=== PATIENT | male | born 1955 | race Caucasian/White ===

== ENCOUNTER 2022-01-31 17:52 | Observation (INO) | payer MEDICARE, OTHER, SELFPAY ==
--- OUTSIDE RECORDS SUMMARY | 2022-01-31 17:54 | XMS REPORT | Continuity of Care Document ---
:1955 Author Organization [facility] Address [address] [place] [address] [address] [place] [address] Care Team Providers Name Role Phone GAYLORD_S Attending Clinician Unavailable OWENS_T Attending Clinician Unavailable GAYLORD_S Admitting Clinician Unavailable OWENS_T Admitting Clinician Unavailable Payers Payer Name Policy Type Policy Number Effective Date Expiration Date Deonna jones [facility] [id number] 2020 (MEDICARE 00:00:00 REPLACEMENT HMO) Problems This patient has no known problems. Allergies, Adverse Reactions, Alerts This patient has no known allergies or adverse reactions. Medications This patient has no known medications. Procedures This patient has no known procedures. Encounters Start End Encounter Admission Attending Care Care Encounter Source Date/Time Date/Time Type Type Clinicians Facility Department ID 2021-12-10 2021-12-10 Outpatient GAYLORD_S [facility] [id number] -2021 [facility] 12:01:00 12:01:00 0422 [facility] 2021-09-28 2021-09-28 Outpatient GAYLORD_S [facility]G [id number] -2021 [facility] 08:00:00 08:00:00 0208 [facility] 2021-09-23 2021-09-23 Outpatient GAYLORD_S [facility] DMG [id number] -2021 [facility] 07:33:00 07:33:00 0203 [facility] 2020-12-16 2020-12-16 Outpatient OWENS_T DMG DMG [id number] [facility] 04:25:00 04:25:00 0428 [facility] 2020-11-21 2020-11-21 Outpatient DMG DMG [id number] [facility] 06:02:00 06:02:00 0403 [facility] Results This patient has no known results.
--- NOTE | 2022-01-31 20:11 | RAD REPORT ---
EXAM DESCRIPTION: RAD - Chest Pa And Lat (2 Views) - 01/31/2022 7:48 pm CLINICAL HISTORY: Cough Chest pain. COMPARISON: No comparisons FINDINGS: The lungs are clear. The heart is normal in size. No displaced fractures. IMPRESSION: No acute or concerning finding suspected.
--- NOTE | 2022-01-31 22:04 | ER ---
Nurse's Notes [facility] Name: Davis Kramer Age: 66 yrs Sex: Male : 1955 Arrival Date: 01/31/2022 Time: 17:54 Bed 27 Private MD: Diagnosis: Chest pain, unspecified;Dyspnea;Essential (primary) hypertension;Hypokalemia Presentation: 01/31 18:38 Chief complaint: Patient states: difficulty breathing x 2 days with cough and chest vg1 tightness; diarrhea yesterday and states nausea. Coronavirus screen: Vaccine status: Patient reports receiving the 1st dose of the Covid vaccine. Client denies travel out of the [place] in the last 14 days. Ebola Screen: Patient denies exposure to infectious person. Patient denies travel to an Ebola-affected area in the 21 days before illness onset. Initial Sepsis Screen: Does the patient meet any 2 criteria? RR > 20 per min. Does the patient have a suspected source of infection? No. Patient's initial sepsis screen is negative. Risk Assessment: Do you want to hurt yourself or someone else? Patient reports no desire to harm self or others. Onset of symptoms was January 29, 2022. 18:38 Method Of Arrival: Ambulatory vg1 18:38 Acuity: CHAPIS 3 vg1 Triage Assessment: 18:38 General: Appears uncomfortable, Behavior is calm, cooperative. Pain: Complains of pain vg1 in chest Pain. Pain: Pain currently is 8 out of 10 on a pain scale. Cardiovascular: Patient's skin is warm and dry. Respiratory: Airway is patent Respiratory effort is even, labored, Respiratory pattern is tachypnea. Historical: - Allergies: 18:42 Demerol; vg1 - Home Meds: 18:42 Depakote Oral [Active]; vg1 - PMHx: 18:42 PTSD; Hypertensive disorder; Seizure; vg1 - Immunization history:: Client reports receiving the 1st dose of the Covid vaccine. - Social history:: Smoking status: Patient denies any tobacco usage or history of. - Family history:: not pertinent. Screenin/14 01:59 Abuse screen: Denies threats or abuse. Nutritional screening: No deficits noted. ke1 Tuberculosis screening: No symptoms or risk factors identified. Fall Risk None identified. Assessment: 01/31 18:58 Reassessment: pt dozed off in triage; Nicole VALDEZ was brought into room to evaluate pt; pt vg1 became aggressive when woken up; pt is now calm. 20:09 Reassessment: Pt placed in room on stretcher, states swabbed in triage. vc1 20:09 Reassessment: See triage assessment. vc1 21:00 Reassessment: Patient asleep on stretcher. vc1 22:00 Reassessment: No changes from previously documented assessment. vc1 23:00 Reassessment: No changes from previously documented assessment. vc1 23:00 Reassessment: Pt moved via wheelchair to POD 1 as ER hold. vc1 23:00 Pain: Denies pain. vc1 Vital Signs: 18:38 BP 157 / 103; Pulse 68; Resp 24; Temp 97.9(O); Pulse Ox 97% on R/A; Weight 95.25 kg; vg1 Height 6 ft. 1 in. (185.42 cm); Pain 8/10; 18:38 Body Mass Index 27.70 (95.25 kg, 185.42 cm) 1 ED Course: 17:54 Patient arrived in ED. jj6 18:38 Arm band placed on. EKG completed in triage. Results shown to MD. 1 18:42 Triage completed. vg1 18:47 Bismark Rivera PA is PHCP. cp 18:47 Edwin Tellez MD is Attending Physician. cp 19:04 EKG done, COVID swab sent to lab. Flu and/or RSV swab sent to lab. Strep swab sent to 1 lab. 19:49 Chest Pa And Lat (2 Views) XRAY In Process Unspecified. EDMS 20:20 Strep Sent. vc1 20:20 Flu Sent. vc1 20:20 SARS-COV-2 RT PCR (Document "Date of Onset" if Symptomatic) Sent. vc1 20:53 Bismark Arredondo MD is Attending Physician. [facility] 22:00 No provider procedures requiring assistance completed. vc1 22:00 Patient maintains SpO2 saturation greater than 95% on room air. vc1 22:02 Anton Bartlett is Hospitalizing Provider. [facility] 02/01 00:55 Noe Maria RN is Primary Nurse. ke1 01:55 Inserted saline lock: 22 gauge in right antecubital area, using aseptic technique. wm Blood collected. 01:56 Troponin HS Sent. 01:56 PT-INR Sent. 01:56 NT PRO-BNP Sent. 01:56 Magnesium Sent. 01:56 LFT's Sent. 01:56 CBC with Diff Sent. 01:56 Basic Metabolic Panel Sent. 02:00 Bed in low position. Call light in reach. Side rails up X 1. Side rails up X2. [facility] 02:14 Lights dimmed. Warm blanket given. Head of bed Elevated. Client placed on continuous cardiac and pulse oximetry monitoring. NIBP monitoring applied. electronic device monitor on. Administered Medications: : Drug: Lopressor (metoprolol TARTRATE)) 25 mg Route: PO; ke1 02:09 Follow up: Response: No adverse reaction ke08 21:29 Drug: Lovenox (enoxaparin) 1 mg/kg Route: Sub-Q; Site: right lower abdomen; ke1 02:09 Follow up: Response: No adverse reaction [facility] Outcome: 01/31 22:03 Decision to Hospitalize by Provider. [facility] 02/01 17:43 Patient left the ED. ss Signatures: Dispatcher [employer] EDMS Bismark Arredondo MD MD cha Smirch, Shelby, RN RN ss Bismark Rivera PA PA cp Garcia, Victoria, RN RN vg1 Alissa Borja Jennifer jj6 Jazmine Daigle, RN RN vc1 Noe Maria, IRIS RN ke1 Corrections: (The following items were deleted from the chart) 01/31 18:44 18:38 Pulse 68bpm; Resp 24bpm; Pulse Ox 97% RA; Temp 97.9F Oral; 95.25 kg; Height 6 ft. vg1 1 in.; BMI: 27.7; Pain 8/10; vg1 18:44 18:42 Allergies: No Known Allergies; vg1 vg1
--- NOTE | 2022-01-31 22:04 | EDPHYS ---
Physician Documentation [facility] Name: Davis Kramer Age: 66 yrs Sex: Male : 1955 Arrival Date: 01/31/2022 Time: 17:54 Bed 27 Private MD: ED Physician Bismark Arredondo HPI: 01/31 21:54 This 66 yrs old Male presents to ER via Ambulatory with complaints of Chest dwayne Congestion, Chest Pressure, Breathing Difficulty. 21:54 The patient or guardian reports chest pain that is located primarily in the substernal dwayne area. Onset: 2 day(s) ago. The pain does not radiate. Associated signs and symptoms: Pertinent positives: abdominal pain. The chest pain is described as a pressure. Duration: The patient or guardian reports multiple episodes, the episodes last approximately 15 second(s). Modifying factors: The symptoms are alleviated by application of supplemental oxygen, remaining still, rest, the symptoms are aggravated by exertion. Severity of pain: At its worst the pain was mild in the emergency department the pain is unchanged. The patient has experienced similar episodes in the past, several times. Historical: - Allergies: 18:42 Demerol; vg1 - Home Meds: 18:42 Depakote Oral [Active]; vg1 - PMHx: 18:42 PTSD; Hypertensive disorder; Seizure; vg1 - Immunization history:: Client reports receiving the 1st dose of the Covid vaccine. - Social history:: Smoking status: Patient denies any tobacco usage or history of. - Family history:: not pertinent. ROS: 21:54 Constitutional: Negative for fever, chills, and weight loss, Eyes: Negative for injury, dwayne pain, redness, and discharge, ENT: Negative for injury, pain, and discharge, Neck: Negative for injury, pain, and swelling, Abdomen/GI: Negative for abdominal pain, nausea, vomiting, diarrhea, and constipation, Back: Negative for injury and pain, : Negative for injury, bleeding, discharge, and swelling, MS/Extremity: Negative for injury and deformity, Skin: Negative for injury, rash, and discoloration, Neuro: Negative for headache, weakness, numbness, tingling, and seizure, Psych: Negative for depression, anxiety, suicide ideation, homicidal ideation, and hallucinations, Allergy/Immunology: Negative for hives, rash, and allergies, Endocrine: Negative for neck swelling, polydipsia, polyuria, polyphagia, and marked weight changes, Hematologic/Lymphatic: Negative for swollen nodes, abnormal bleeding, and unusual bruising. 21:54 Cardiovascular: Positive for chest pain, of the chest. 21:54 Respiratory: Positive for shortness of breath, on exertion. Exam: 18:55 ECG was reviewed by the Attending Physician. cp 21:54 Constitutional: This is a well developed, well nourished patient who is awake, alert, dwayne and in no acute distress. Head/Face: Normocephalic, atraumatic. Eyes: Pupils equal round and reactive to light, extra-ocular motions intact. Lids and lashes normal. Conjunctiva and sclera are non-icteric and not injected. Cornea within normal limits. Periorbital areas with no swelling, redness, or edema. ENT: Nares patent. No nasal discharge, no septal abnormalities noted. Tympanic membranes are normal and external auditory canals are clear. Oropharynx with no redness, swelling, or masses, exudates, or evidence of obstruction, uvula midline. Mucous membranes moist. Neck: Trachea midline, no thyromegaly or masses palpated, and no cervical lymphadenopathy. Supple, full range of motion without nuchal rigidity, or vertebral point tenderness. No Meningismus. Chest/axilla: Normal chest wall appearance and motion. Nontender with no deformity. No lesions are appreciated. Cardiovascular: Regular rate and rhythm with a normal S1 and S2. No gallops, murmurs, or rubs. Normal PMI, no JVD. No pulse deficits. Respiratory: Lungs have equal breath sounds bilaterally, clear to auscultation and percussion. No rales, rhonchi or wheezes noted. No increased work of breathing, no retractions or nasal flaring. Abdomen/GI: Soft, non-tender, with normal bowel sounds. No distension or tympany. No guarding or rebound. No evidence of tenderness throughout. Back: No spinal tenderness. No costovertebral tenderness. Full range of motion. Male : Normal genitalia with no discharge or lesions. Skin: Warm, dry with normal turgor. Normal color with no rashes, no lesions, and no evidence of cellulitis. MS/ Extremity: Pulses equal, no cyanosis. Neurovascular intact. Full, normal range of motion. Neuro: Awake and alert, GCS 15, oriented to person, place, time, and situation. Cranial nerves II-XII grossly intact. Motor strength 5/5 in all extremities. Sensory grossly intact. Cerebellar exam normal. Normal gait. Psych: Awake, alert, with orientation to person, place and time. Behavior, mood, and affect are within normal limits. 02/01 02:09 ECG was reviewed by the Attending Physician. [facility] Vital Signs: 01/31 18:38 BP 157 / 103; Pulse 68; Resp 24; Temp 97.9(O); Pulse Ox 97% on R/A; Weight 95.25 kg; vg1 Height 6 ft. 1 in. (185.42 cm); Pain 8/10; 18:38 Body Mass Index 27.70 (95.25 kg, 185.42 cm) vg1 MDM: 20:53 Patient medically screened. dwayne 21:58 Differential diagnosis: abnormal EKG, coronary artery disease chest wall pain, dwayne Cholelithiasis pancreatitis, pneumonia, stable angina, unstable angina. HEART Score: History: Slightly Suspicious (0), ECG: Normal (0), Age: > or = 65 years (2), Risk Factors: 1 or 2 risk factors (1), [Hypertension] [+ Family HX] Troponin: < or = 1 x Normal Limit (0). The patient was given aspirin in the Emergency Department. The patient's deep vein thrombosis risk score was calculated as follows: Total Score: 0. This patient was found to be at low risk for a deep vein thrombosis by using the Well's assessment criteria. The patient's pulmonary embolism risk score was calculated as follows: Total Score: 0-2 points. This patient was found to be at low risk for a pulmonary embolism by using the Well's assessment criteria. URVASHI Risk Score: 1 - patient's age is greater or equal to 65 years, TOTAL SCORE = 1. Data reviewed: vital signs, nurses notes, lab test result(s), EKG, radiologic studies, plain films. Data interpreted: channel business manager: rate is 68 beats/min, rhythm is regular, Pulse oximetry: on room air is 68 %. Test interpretation: by ED physician or midlevel provider: ECG, plain radiologic studies. Counseling: I had a detailed discussion with the patient and/or guardian regarding: the historical points, exam findings, and any diagnostic results supporting the discharge/admit diagnosis, lab results, radiology results, the need for further work-up and treatment in the hospital. 01/31 18:57 Order name: SARS-COV-2 RT PCR (Document "Date of Onset" if Symptomatic); Complete Time: [facility] 21:42 01/31 18:57 Order name: Flu; Complete Time: 21:08 [facility] 01/31 18:57 Order name: Strep; Complete Time: 21:08 [facility] 01/31 21:03 Order name: Throat Culture [facility] 01/31 21:49 Order name: Basic Metabolic Panel [facility] 01/31 21:49 Order name: CBC with Diff; Complete Time: 02:26 [facility] 01/31 21:49 Order name: LFT's [facility] 01/31 21:49 Order name: Magnesium [facility] 01/31 21:49 Order name: NT PRO-BNP [facility] 01/31 21:49 Order name: PT-INR; Complete Time: 02:36 [facility] 01/31 21:49 Order name: Troponin HS [facility] 01/31 21:49 Order name: Lipase [facility] 01/31 22:06 Order name: Depakote [facility] 02/01 06:42 Order name: Glucose, Ancillary Testing [facility] 01/31 19:03 Order name: Chest Pa And Lat (2 Views) XRAY; Complete Time: 21:08 [facility] 01/31 21:49 Order name: EKG; Complete Time: 22:20 [facility] 01/31 21:49 Order name: Cardiac monitoring; Complete Time: 01:59 [facility] 01/31 21:49 Order name: EKG - Nurse/Tech; Complete Time: 01:59 [facility] 01/31 21:49 Order name: IV Saline Lock; Complete Time: 01:56 [facility] 02/01 08:47 Order name: Troponin High Sensitivity [facility] 02/01 08:47 Order name: Lipid Profile [facility] 02/01 08:47 Order name: Thyroid Stimulating Hormone [facility] 02/01 11:47 Order name: Glucose, Ancillary Testing [facility] 02/01 14:41 Order name: Potassium [facility] 02/01 14:41 Order name: Troponin High Sensitivity [facility] 02/01 16:44 Order name: Glucose, Ancillary Testing [facility] 01/31 21:49 Order name: Labs collected and sent; Complete Time: 01:56 [facility] 01/31 21:49 Order name: O2 Per Protocol; Complete Time: 01:59 [facility] 01/31 21:49 Order name: O2 Sat Monitoring; Complete Time: :59 dwayne EC:55 Rate is 72 beats/min. Rhythm is regular. AR interval is normal. QRS interval is normal. cp QT interval is normal. T waves are Inverted in lead aVR. Interpreted by me. Reviewed by me. 02/01 02:09 Rate is 64 beats/min. Rhythm is regular. QRS Petroleum is Normal. AR interval is normal. QRS dwayne interval is normal. QT interval is normal. No Q waves. T waves are Normal. No ST changes noted. Clinical impression: NSR w/ Non-specific ST/T Changes and No evidence of ischemia. Interpreted by me. Reviewed by me. Administered Medications: :29 Drug: Lopressor (metoprolol TARTRATE)) 25 mg Route: PO; ke1 02:09 Follow up: Response: No adverse reaction ke1 01:29 Drug: Lovenox (enoxaparin) 1 mg/kg Route: Sub-Q; Site: right lower abdomen; ke1 02:09 Follow up: Response: No adverse reaction ke1 Disposition Summary: 01/31/22 22:03 Hospitalization Ordered Hospitalization Status: Observation dwayne Provider: Anton Bartlett cha Condition: Stable dwayne Problem: new dwayne Symptoms: have improved dwayne Bed/Room Type: Standard [facility] Location: [facility] ER HOLD(02/01/22 17:42) Room Assignment: ERHOLD-(02/01/22 17:42) Diagnosis - Chest pain, unspecified dwayne - Dyspnea dwayne - Essential (primary) hypertension dwayne - Hypokalemia dwayne Forms: - Medication Reconciliation Form dwayne - SBAR form dwayne Addendum: 02/04/2022 08:30 Co-signature as Attending Physician, Bismark Arredondo MD I agree with the assessment and c soto plan of care. Signatures: Dispatcher [employer] EDMS Tory Chatterjee Corey, MD MD cha Smirch, Shelby RN IRIS Bismark Rivera PA PA cp Garcia, Cindy, RN RN cg Garcia, Victoria, RN RN vg1 Noe Maria RN RN ke1 Deana Butler PA PA sb3 Corrections: (The following items were deleted from the chart) 01/31 18:44 18:42 Allergies: No Known Allergies; vg1 vg1 22:56 22:20 Chest Single View+RAD.RAD.BRZ ordered. EDMS EDMS 23:38 22:03 Telemetry/MedSurg (observation) [facility] :38 22:03 [facility] 02/01 16:04 01/31 23:38 [facility] ER HOLD cg 02/01 16:04 01/31 23:38 ERHOLD- cg 02/01 17:42 16:04 Telemetry/MedSurg (observation) bd 17:42 16:[address] [place] [address]
[2022-02-01] MEDS ORDERED: ENOXAPARIN 100 MG/ML SYR SQ ONE (01:08)
[2022-02-01] MEDS ORDERED: METOPROLOL TAR 25 MG TAB ONE (01:08)
[2022-02-01 02:16] LABS: Absolute Lymphocytes (CBC) 1.9 K/uL (0.7-4.9); Hematocrit 47.2 % (39.6-49.0); Lymphocytes % 33.7 % (15.3-44.8); MPV 7.6 fL (7.6-11.3)
[2022-02-01 02:29] LABS: Protime INR 1.04
--- NOTE | 2022-02-01 02:45 | P.HP ---
Certification for Inpatient Patient admitted to: Observation With expected LOS: <2 Midnights Patient will require the following post-hospital care: None Practitioner: I am a practitioner with admitting privileges, knowledge of patient current condition, hospital course, and medical plan of care. Services: Services provided to patient in accordance with Admission requirements found in Title 42 Section 412.3 of the Code of Federal Regulations Patient History Date of Service: 02/01/22 Reason for admission: Chest Pain History of Present Illness: Patient is a 66 y/o male with PMH of HTN, NIDDM, and seizure disorder who presented to the ED with complaints of chest pressure, SHOB on exertion, nausea, diarrhea, and congestion for 2 days. CXR negative for acute process. Flu/COVID/Strep negative. EKG demonstrated NSR without ST changes. CBC WNL. Pending CMP and troponin as CMP machine has not been working. VSS. He was given lovenox and metoprolol in the ED. Provider wishes to admit patient for observation. Allergies meperidine [From Demerol] Allergy (Mild, Verified 02/01/22 04:22) Nausea/Vomiting Home medications list reviewed: Yes - Past Medical/Surgical History Diabetic: Yes -: Type 2 Diabetes, Non-Insulin Dependent -: Hypertension -: Seizure Disorder -: PTSD Past Surgical History: Patient denies surgical history Psychosocial/ Personal History: Patient is a . He lives at home. - Social History Smoking Status: Never smoker Alcohol use: Yes CD- Drugs: No Caffeine use: Yes Place of Residence: Home Review of Systems Respiratory: Cough, SOB with Excertion Cardiovascular: Chest Pain Gastrointestinal: Nausea, Diarrhea Physical Examination - Physical Exam General: Alert, In no apparent distress HEENT: Atraumatic, PERRLA, EOMI, Sclerae nonicteric Neck: Supple, 2+ carotid pulse no bruit, No LAD, Without JVD or thyroid abnormality Respiratory: Clear to auscultation bilaterally, Normal air movement Cardiovascular: Regular rate/rhythm, Normal S1 S2 Gastrointestinal: Normal bowel sounds, No tenderness Musculoskeletal: No tenderness Integumentary: No rashes Neurological: Normal speech, Normal strength at 5/5 x4 extr, Normal tone, Normal affect - Studies Laboratory Data (last 24 hrs) 02/01/22 01:48: PT 11.5, INR 1.04 02/01/22 01:48: WBC 5.6, Hgb 16.0, Hct 47.2, Plt Count 247 Microbiology Data (last 24 hrs): 01/31/22 19:25 Throat Group A Streptococcus Rapid Screen - Final 01/31/22 18:57 Nasopharnyx Influenza Type A Antigen Screen - Final 01/31/22 18:57 Nasopharnyx Influenza Type B Antigen Screen - Final Assessment and Plan - Problems (Diagnosis) (1) Chest pain Current Visit: Yes Status: Acute Qualifiers: Chest pain type: unspecified Qualified Code(s): R07.9 - Chest pain, unspecified (2) Hypertension Current Visit: Yes Status: Chronic Qualifiers: Hypertension type: primary hypertension Qualified Code(s): I10 - Essential (primary) hypertension (3) Type 2 diabetes mellitus Current Visit: Yes Status: Chronic Qualifiers: Diabetes mellitus terminologist insulin use: without correction use Diabetes mellitus complication status: without complication Qualified Code(s): E11.9 - Type 2 diabetes mellitus without complications - Plan -Pend and trend troponin -Echo and cardiology consult -Aspirin and atorvastatin daily -TSH and lipid panel ordered -Monitor on telemetry -Reconcile and continue home medications -Lovenox for VTE ppx -Full code Discharge Plan: Home Plan to discharge in: 24 Hours - Advance Directives Does patient have a Living Will: No Does patient have a Durable POA for Healthcare: No - Code Status/Comfort Care Code Status Assessed: Yes (Full) Critical Care: No Time Spent Managing Pts Care (In Minutes): 50
[2022-02-01] MEDS ORDERED: ONDANSETRON 4 MG/2 ML VIAL IV PRN (04:22)
[2022-02-01] MEDS ORDERED: ACETAMINOPHEN 500 MG TAB PO PRN (04:22)
[2022-02-01 04:24] LABS: Albumin 4.1 g/dL (3.4-5.0); Bilirubin Direct 0.1 mg/dL (0-0.2); Bilirubin Total 0.3 mg/dL (0.2-1.0); Magnesium 2.2 mg/dL (1.8-2.4); Potassium 3.1 mmol/L (3.5-5.1); Protein, Total 8.6 g/dL (6.4-8.2); Troponin High Sensitivity 7.2 pg/mL (<58.9)
[2022-02-01 04:39] LABS: Valproic Acid (Depakene) Level 77.3 ug/mL (50-100)
[2022-02-01 05:33] VITALS: BMI 26.9
[2022-02-01] MEDS: INSULIN -REGULAR HUMAN 50 UNIT/0.5 ML ML SQ SCH ×3 (07:30→16:30)
[2022-02-01 08:47] LABS: Thyroid Stimulating Hormone 2.39 uIU/mL (0.360-3.740); Troponin High Sensitivity 8.7 pg/mL (<58.9)
[2022-02-01] MEDS: POTASSIUM 25 MEQ EFFERV TAB PO ONE ×2 (08:57→09:25)
[2022-02-01] MEDS ORDERED: ASPIRIN EC 81 MG TAB PO ONE ×2 (08:59→09:27)
[2022-02-01] MEDS ORDERED: ASPIRIN 81 MG CHEWABLE TABLET ONE (08:59)
[2022-02-01] MEDS ORDERED: ENOXAPARIN 40 MG/0.4 ML SQ SCH (09:00)
[2022-02-01] MEDS ORDERED: POTASSIUM 25 MEQ EFFERV TAB ONE ×2 (09:00→09:27)
[2022-02-01] MEDS ORDERED: ASPIRIN EC 81 MG TAB PO SCH (09:00)
[2022-02-01] MEDS ORDERED: ENOXAPARIN 40 MG/0.4 ML SQ ONE ×2 (09:00→09:28)
[2022-02-01 10:17] VITALS: O2SAT 97
--- NOTE | 2022-02-01 11:06 | EKG ---
Test Date: 2022-02-01 Test Time: 02:00:04 Speech Therapy Teacher: MEASUREMENT RESULTS: Intervals: Rate: 64 SC: 186 QRSD: 94 QT: 424 QTc: 437 [place]: P: 39 SC: 186 QRS: 18 T: 9 INTERPRETIVE STATEMENTS: Normal sinus rhythm Normal ECG Compared to ECG 01/31/2022 18:44:44 No significant changes Electronically Signed On 02-01-22 11:04:51 CDT by Rony Bill
--- NOTE | 2022-02-01 11:07 | EKG ---
Test Date: 2022-01-31 Test Time: 18:44:44 Weight Engineer: LEN MEASUREMENT RESULTS: Intervals: Rate: 72 [place]: 172 QRSD: 82 QT: 396 QTc: 433 [place]: P: 36 [place]: 172 QRS: 16 T: 22 INTERPRETIVE STATEMENTS: Normal sinus rhythm Normal ECG No previous ECG available for comparison Electronically Signed On 02-01-22 11:04:57 CDT by Rony Bill
--- NOTE | 2022-02-01 13:29 | CON ---
Date of Consultation: 02/01/2022 Reason For Consultation: Chest pain. History Of Present Illness: Mr. Kramer is a 66-year-old without any past medical history except for h ypertension, seizure, and posttraumatic stress disorder. He came in with cough, congestion, stuffy n ose, productive cough of green and yellow sputum, chest pressure especially with cough. No nausea, v omiting, diaphoresis, PND, orthopnea, pedal edema, palpitations, or syncope. Has already ruled out f or CO. His potassium is 3.1. Glucose is 162. EKG is normal. Chest x-ray is unremarkable. Past Medical History: As stated above. Allergies: HE IS ALLERGIC TO DEMEROL. Review of Systems: Negative. Social History: Negative. Family History: Noncontributory. Medications: At home include Depakote. Physical Examination: Vital Signs: Stable, afebrile, sinus rhythm. HEENT: Negative. Neck: Supple without any bruit, lymphadenopathy, JVD, or thyromegaly. Chest: Revealed some expiratory wheezing. Cardiac: Revealed a regular rhythm and rate with S4 gallops. No murmurs or rubs. Abdomen: Benign. Extremities: Revealed no clubbing, cyanosis, or edema. Diagnostic Data: Listed earlier. Impression And Plan: Atypical chest pain. I think it is related to pulmonary issue with possible br onchitis. We should rule out congestive heart failure. Echocardiogram is pending. He is on Lovenox , Lipitor, aspirin, and insulin. Potassium needs to be corrected. His glucose needs to be addressed . His hypertension is well controlled. Seizure is well controlled on Depakote. I think if the echo cardiogram is normal, he can go home on antibiotics and I will set him up for an outpatient stress te st and see him in the near future. ADITHYA/LASHANDA Voice ID: [id number] Report ID: [id number]
[2022-02-01 14:41] LABS: Potassium 4.3 mmol/L (3.5-5.1); Troponin High Sensitivity 7.2 pg/mL (<58.9)
[2022-02-01 16:47] VITALS: BP 164/97; TEMP 98.1
--- NOTE | 2022-02-01 17:39 | P.DS ---
Admission Date: 02/01/22 Discharge Date: 02/01/22 Disposition: ROUTINE DISCHARGE Discharge Condition: FAIR Reason for Admission: Chest Pain - Problems (1) Cough Current Visit: Yes Status: Acute (2) Acute bronchitis Current Visit: Yes Status: Acute (3) Chest pain Current Visit: Yes Status: Acute Qualifiers: Chest pain type: unspecified Qualified Code(s): R07.9 - Chest pain, unspecified (4) Hypertension Current Visit: Yes Status: Chronic Qualifiers: Hypertension type: primary hypertension Qualified Code(s): I10 - Essential (primary) hypertension (5) Type 2 diabetes mellitus Current Visit: Yes Status: Chronic Qualifiers: Diabetes mellitus senior living insulin use: without senior living use Diabetes mellitus complication status: without complication Qualified Code(s): E11.9 - Type 2 diabetes mellitus without complications Brief History of Present Illness: Patient is a 66 y/o male with PMH of HTN, NIDDM, and seizure disorder who presented to the ED with complaints of chest pressure, SHOB on exertion, nausea, diarrhea, and congestion for 2 days. CXR negative for acute process. Flu/COVID/Strep negative. Patient reported cough productive of yellow sputum. He also felt he has a sputum stuck in his airways and not able to cough it up. EKG demonstrated NSR without ST changes. CBC WNL, initial troponin. He was given lovenox and metoprolol in the ED and hospitalized for further evaluation. Hospital Course: Patient placed under observation on the medical floor. Troponin trended x3 and was negative. Patient was chest pain-free. He was complaining of not able to cough up sputum from his airway but occasionally brings up scanty yellow-colored sputum. ACS rule out. Vitals are stable. Patient is deemed stable for discharge. Dr. Bill about patient. He will follow with Dr. Bill in the office for arrangement for stress test. Vital Signs/Physical Exam: Temp Pulse Resp BP Pulse Ox 98.1 F 62 14 164/97 H 98 02/01/22 16:00 02/01/22 16:00 02/01/22 16:00 02/01/22 16:00 02/01/22 16:00 Laboratory Data at Discharge: WBC 5.6 K/uL (4.3-10.9) 02/01/22 01:48 Hgb 16.0 g/dL (13.6-17.9) 02/01/22 01:48 Hct 47.2 % (39.6-49.0) 02/01/22 01:48 Plt Count 247 K/uL (152-406) 02/01/22 01:48 PT 11.5 SECONDS (9.5-12.5) 02/01/22 01:48 INR 1.04 02/01/22 01:48 Sodium 141 mmol/L (136-145) 02/01/22 01:48 Potassium 4.3 mmol/L (3.5-5.1) 02/01/22 13:59 BUN 18 mg/dL (7-18) 02/01/22 01:48 Creatinine 0.95 mg/dL (0.55-1.3) 02/01/22 01:48 Glucose 162 mg/dL (74-106) H 02/01/22 01:48 Magnesium 2.2 mg/dL (1.8-2.4) 02/01/22 01:48 Total Bilirubin 0.3 mg/dL (0.2-1.0) 02/01/22 01:48 AST 19 U/L (15-37) 02/01/22 01:48 ALT 29 U/L (12-78) 02/01/22 01:48 Alkaline Phosphatase 83 U/L (45-117) 02/01/22 01:48 Triglycerides 238 mg/dL (<150) H 02/01/22 08:03 Cholesterol 116 mg/dL (<200) 02/01/22 08:03 HDL Cholesterol 37 mg/dL (40-60) L 02/01/22 08:03 Cholesterol/HDL Ratio 3.14 02/01/22 08:03 Lipase 144 U/L (73-393) 02/01/22 01:48 Home Medications: ARIPiprazole [Aripiprazole] 10 mg PO DAILY 02/01/22 Acetaminophen 650 mg PO BIDP PRN 02/01/22 Aspirin 81 mg PO DAILY 02/01/22 Atorvastatin Calcium [Lipitor] 80 mg PO BEDTIME 02/01/22 Divalproex Sodium [Divalproex Sodium ER] 1,000 mg PO BID 02/01/22 Gabapentin 900 mg PO BID 02/01/22 Guaifenesin [Mucinex] 600 mg PO BID #20 tablet.er 02/01/22 Levofloxacin [Levaquin] 500 mg PO DAILY #5 tablet 02/01/22 Levothyroxine Sodium [Levothyroxine] 25 mcg PO DAILY 02/01/22 Omeprazole 20 mg PO DAILY 02/01/22 Sertraline HCl 200 mg PO DAILY 02/01/22 lisinopriL [Lisinopril] 10 mg PO DAILY 02/01/22 New Medications: Levofloxacin [Levaquin] 500 mg PO DAILY #5 tablet Guaifenesin [Mucinex] 600 mg PO BID #20 tablet.er Diet: AHA Activity: Ad celestina Followup: Rony Bill MD [ACTIVE - CAN ADMIT] - 2-3 Days (Please call office at [phone] for arrangement for Stress test.) Unknown,U [Primary Care Provider] -
[2022-02-01] MEDS ORDERED: ATORVASTATIN 40 MG TAB PO SCH (21:00)
== END 2022-02-01 17:58 | disposition home or self-care (01) ==
LOC: ER 17:52 → ERHOLD 02-01 02:38
PROVIDERS: ADMIT Internal Medicine; ATTEND Internal Medicine
DX: R07.89 Other chest pain (principal); I10 Essential (primary) hypertension; E11.9 Type 2 diabetes mellitus without complications; E87.6 Hypokalemia; R05.9 Cough, unspecified; R06.02 Shortness of breath; R09.81 Nasal congestion; G40.909 Epilepsy, unspecified, not intractable, without status epilepticus; R11.0 Nausea; R19.7 Diarrhea, unspecified; R09.89 Other specified symptoms and signs involving the circulatory and respiratory systems; F43.10 Post-traumatic stress disorder, unspecified; Z79.4 Long term (current) use of insulin; Z79.82 Long term (current) use of aspirin; Z79.899 Other long term (current) drug therapy; Z88.6 Allergy status to analgesic agent; Z20.822 Contact with and (suspected) exposure to COVID-19
CPT/HCPCS: 93005 ×2; 87070; 85025; 80048; 36415; 83735; 84132; 85610; 80061; 82947 ×3; 80076; 80164; 87081; 84443; 84484 ×3; 83690; 83880; 87804 ×2; 71046; 96372; 99285; U0003; J1650 ×2; G0378 ×2

== ENCOUNTER 2022-06-08 14:40 | Observation (INO) | payer MEDICARE, OTHER ==
[2022-06-08 15:44] LABS: Absolute Lymphocytes (CBC) 2.4 K/uL (0.7-4.9); Lymphocytes % 36.1 % (15.3-44.8); MCV 86.2 fL (80-100); MPV 7.4 fL (7.6-11.3); RBC Red Blood Cell Count 4.87 M/uL (4.33-5.43)
[2022-06-08 16:02] LABS: ALT/SGPT 26 U/L (12-78); AST/SGOT 18 U/L (15-37); Albumin 3.5 g/dL (3.4-5.0); Alkaline Phosphatase 79 U/L (45-117); BUN Blood Urea Nitrogen 22 mg/dL (7-18); Bicarbonate 28 mmol/L (21-32); Bilirubin Total 0.2 mg/dL (0.2-1.0); Glomerular Filtration Rate 95 ml/min (=/>90); Glucose Level 103 mg/dL (74-106); NT PRO-BNP 32 pg/mL (<125); Potassium 3.8 mmol/L (3.5-5.1); Protein, Total 7.3 g/dL (6.4-8.2); Sodium Level 138 mmol/L (136-145); Troponin High Sensitivity 38.9 pg/mL (<58.9)
--- NOTE | 2022-06-08 16:20 | RAD REPORT ---
EXAM DESCRIPTION: RAD - Chest Single View - 06/08/2022 4:07 pm CLINICAL HISTORY: CHEST PAIN Chest pain. COMPARISON: Chest Pa And Lat (2 Views) dated 01/31/2022 FINDINGS: Portable technique limits examination quality. The lungs are grossly clear. The heart is normal in size. No displaced fractures. IMPRESSION: No acute intrathoracic process suspected.
[2022-06-08 17:01] LABS: Bilirubin Direct < 0.1 mg/dL (0-0.2)
[2022-06-08] MEDS ORDERED: FENTANYL CITR 100 MCG/2 ML ONE (18:06)
--- NOTE | 2022-06-08 18:33 | EDPHYS ---
Physician Documentation [facility] Name: Davis Krmaer Age: 67 yrs Sex: Male : 1955 Arrival Date: 06/08/2022 Time: 14:52 Bed 15 Private MD: ED Physician Bismark Arredondo HPI: 06/08 15:00 This 67 yrs old Male presents to ER via EMS with complaints of Chest Pain > 30 y/o. cp 15:00 The patient or guardian reports chest pain that is located primarily in the anterior cp chest wall, left. Onset: just prior to arrival. The chest pain is described as sharp. 15:00 Duration: The patient or guardian reports a single episode, that is still ongoing, but cp improving. EMS care prior to arrival includes: aspirin, nitroglycerin. 15:00 Associated signs and symptoms: Pertinent negatives: abdominal pain, cough, diaphoresis, cp dizziness, headache, lower extremity pain, lower extremity swelling, shortness of breath, syncope. Historical: - Allergies: 15:20 Demerol; db 15:20 Morphine; db - Home Meds: 15:20 Depakote Oral [Active]; db - PMHx: 15:20 Hypertensive disorder; PTSD; Seizure; db - Immunization history:: Adult Immunizations unknown, Client reports receiving the 1st dose of the Covid vaccine. - Social history:: Smoking status: Patient denies any tobacco usage or history of. ROS: 15:05 Constitutional: Negative for body aches, chills, fever, poor PO intake. cp 15:05 Eyes: Negative for injury, pain, redness, and discharge. cp 15:05 ENT: Negative for drainage from ear(s), ear pain, sore throat, difficulty swallowing, difficulty handling secretions. 15:05 Cardiovascular: Positive for chest pain, Negative for edema, palpitations. 15:05 Respiratory: Negative for cough, shortness of breath, wheezing. 15:05 Abdomen/GI: Negative for abdominal pain, nausea, vomiting, and diarrhea. 15:05 Back: Negative for pain at rest, pain with movement. 15:05 Neuro: Negative for altered mental status, dizziness, headache, syncope, weakness. 15:05 All other systems are negative. Exam: 15:10 Constitutional: The patient appears in no acute distress, alert, awake, cp non-diaphoretic, non-toxic, well developed, well nourished. 15:10 Head/Face: Normocephalic, atraumatic. cp 15:10 Eyes: Periorbital structures: appear normal, Conjunctiva: normal, no exudate, no injection, Sclera: no appreciated abnormality, Lids and lashes: appear normal, bilaterally. 15:10 ENT: External ear(s): are unremarkable, Nose: is normal, Mouth: Lips: moist, Oral mucosa: pink and intact, moist, Posterior pharynx: is normal, airway is patent, no erythema, no exudate. 15:10 Neck: ROM/movement: is normal, is supple, without pain, no range of motions limitations, no nuchal rigidity. 15:10 Chest/axilla: Inspection: normal, Palpation: is normal, no crepitus, no tenderness. 15:10 Cardiovascular: Rate: normal, Rhythm: regular, Pulses: Pulses are 2+ in right radial artery and left radial artery. Edema: is not appreciated, JVD: is not appreciated. 15:10 Respiratory: the patient does not display signs of respiratory distress, Respirations: normal, no use of accessory muscles, no retractions, labored breathing, is not present, Breath sounds: are clear throughout, no decreased breath sounds, no stridor, no wheezing. 15:10 Abdomen/GI: Inspection: abdomen appears normal, Palpation: abdomen is soft and non-tender, in all quadrants. 15:10 Back: pain, is absent, ROM is normal. 15:10 Neuro: Orientation: to person, place \T\ time. Mentation: is normal, Motor: moves all fours, strength is normal, Sensation: is normal. 15:16 ECG was reviewed by the Attending Physician. cp Vital Signs: 14:54 BP 130 / 82; Pulse 73; Resp 16; Temp 98.1; Pulse Ox 95% ; Weight 96.62 kg; Height 6 ft. db 1 in. (185.42 cm); 15:15 BP 132 / 90; Pulse 70; Resp 16; Pulse Ox 100% ; Pain 4/10; db 16:00 BP 114 / 83; Pulse 64; Resp 16; Pulse Ox 95% ; db 17:00 BP 108 / 76; Pulse 63; Resp 16; Pulse Ox 95% ; db 17:30 BP 121 / 77; Pulse 65; Resp 18; Pulse Ox 96% ; db 18:00 BP 136 / 95; Pulse 76; Resp 16; Pulse Ox 97% ; db 19:21 BP 129 / 85; Pulse 66; Resp 17; Pulse Ox 97% on R/A; ha1 14:54 Body Mass Index 28.10 (96.62 kg, 185.42 cm) db MDM: 14:57 Patient medically screened. cp 18:00 Data reviewed: vital signs, nurses notes, lab test result(s), EKG, radiologic studies, cp plain films. 06/08 14:57 Order name: Basic Metabolic Panel; Complete Time: 17:28 cp 06/08 17:28 Interpretation: Normal except: BUN 22. cp 06/08 14:57 Order name: CBC with Diff; Complete Time: 17:28 cp 06/08 14:57 Order name: LFT's; Complete Time: 17:28 cp 06/08 14:57 Order name: Magnesium; Complete Time: 17:28 cp 06/08 14:57 Order name: NT PRO-BNP; Complete Time: 17:28 cp 06/08 14:57 Order name: PT-INR; Complete Time: 17:28 cp 06/08 14:57 Order name: Troponin HS; Complete Time: 17:28 cp 06/08 14:57 Order name: XRAY Chest (1 view); Complete Time: 17:28 cp 06/08 14:57 Order name: EKG; Complete Time: 14:58 cp 06/08 14:57 Order name: Cardiac monitoring; Complete Time: 15:36 cp 06/08 20:00 Order name: SARS-COV-2 Antigen Rapid mw2 06/08 20:29 Order name: SARS-COV-2 Antigen Rapid EDMS 06/08 14:57 Order name: EKG - Nurse/Tech; Complete Time: 15:16 cp 06/08 14:57 Order name: IV Saline Lock; Complete Time: 15:36 cp 06/08 14:57 Order name: Labs collected and sent; Complete Time: 15:36 cp 06/08 14:57 Order name: O2 Per Protocol; Complete Time: 15:36 cp 06/08 14:57 Order name: O2 Sat Monitoring; Complete Time: 15:36 cp 06/08 17:28 Order name: Blood Pressure Recheck: bilateral upper extremity; Complete Time: 18:16 cp EC:16 Rate is 76 beats/min. Rhythm is regular. TX interval is normal. QRS interval is normal. cp QT interval is normal. T waves are Inverted in lead aVR. Interpreted by me. Reviewed by me. Administered Medications: 18:16 Drug: fentaNYL (PF) 25 mcg Route: IVP; Site: right antecubital; db 19:19 Drug: Depakote (divalproex) 1000 mg Route: PO; ha1 20:39 Follow up: Response: No adverse reaction ha1 Disposition Summary: 06/08/22 18:33 Hospitalization Ordered Hospitalization Status: Observation cp Location: Telemetry/MedSurg (observation) cp Condition: Stable cp Problem: new cp Symptoms: have improved cp Bed/Room Type: Standard cp Provider: Anton Bartlett(06/08/22 18:39) cp Room Assignment: [facility](06/08/22 20:37) cg Diagnosis - Chest pain, unspecified cp Forms: - Medication Reconciliation Form cp - SBAR form cp Signatures: Dispatcher [employer] EDMS Bismark Rivera PA PA cp Denia Willett, RN RN cg Morena Bland RN RN ha1 Marielle Heaton, RN RN db Corrections: (The following items were deleted from the chart) 18:39 18:33 Deana Butler cp cp 20:37 18:33 cp cg
--- NOTE | 2022-06-08 18:33 | ER ---
Nurse's Notes [facility] Name: Davis Kramer Age: 67 yrs Sex: Male : 1955 Arrival Date: 06/08/2022 Time: 14:52 Bed 15 Private MD: Diagnosis: Chest pain, unspecified Presentation: 06/08 14:54 Chief complaint: Patient states: CHEST PAIN today EMS states: [facility] Patient given ASA 324 and nitro. Coronavirus screen: Vaccine status: Patient reports receiving the 1st dose of the Covid vaccine. Client denies travel out of the [place] in the last 14 days. Ebola Screen: Patient negative for fever greater than or equal to 101.5 degrees Fahrenheit, and additional compatible Ebola Virus Disease symptoms Patient denies exposure to infectious person. Patient denies travel to an Ebola-affected area in the 21 days before illness onset. No symptoms or risks identified at this time. Initial Sepsis Screen: Does the patient meet any 2 criteria? No. Patient's initial sepsis screen is negative. Does the patient have a suspected source of infection? No. Patient's initial sepsis screen is negative. Risk Assessment: Do you want to hurt yourself or someone else? Patient reports no desire to harm self or others. Onset of symptoms was June 08, 2022. 14:54 Method Of Arrival: EMS: [facility] db 14:54 Acuity: CHAPIS 2 db Triage Assessment: 15:20 General: Appears in no apparent distress. comfortable, Behavior is calm, cooperative, db appropriate for age, quiet. Pain: Complains of pain in chest. Cardiovascular: Reports chest pain. Historical: - Allergies: 15:20 Demerol; db 15:20 Morphine; db - Home Meds: 15:20 Depakote Oral [Active]; db - PMHx: 15:20 Hypertensive disorder; PTSD; Seizure; db - Immunization history:: Adult Immunizations unknown, Client reports receiving the 1st dose of the Covid vaccine. - Social history:: Smoking status: Patient denies any tobacco usage or history of. Screenin:15 Abuse screen: Denies threats or abuse. Denies injuries from another. Nutritional db screening: No deficits noted. Tuberculosis screening: No symptoms or risk factors identified. Fall Risk None identified. No fall in past 12 months (0 pts). No secondary diagnosis (0 pts). IV access (20 points). Ambulatory Aid- None/Bed Rest/Nurse Assist (0 pts). Gait- Normal/Bed Rest/Wheelchair (0 pts) Mental Status- Oriented to own ability (0 pts). Total Franco Fall Scale indicates No Risk (0-24 pts). Assessment: 15:32 Reassessment: Patient appears in no apparent distress at this time. No changes from db previously documented assessment. Patient is alert, oriented x 3, equal unlabored respirations, skin warm/dry/pink. General: Appears in no apparent distress. comfortable, Behavior is calm, cooperative, appropriate for age, quiet. Pain: Complains of pain in chest Pain does not radiate. Pain began suddenly, 2 hours ago. Aggravated by states was upset while at [facility]. Neuro: No deficits noted. Level of Consciousness is awake, alert, obeys commands, Oriented to person, place, time, situation, Appropriate for age Speech is normal, Facial symmetry appears normal. Cardiovascular: No deficits noted. Cardiovascular: Reports chest pain, Denies shortness of breath. Respiratory: No deficits noted. Airway is patent Respiratory effort is even, unlabored, Respiratory pattern is regular, symmetrical. GI: No deficits noted. No signs and/or symptoms were reported involving the gastrointestinal system. : No deficits noted. No signs and/or symptoms were reported regarding the genitourinary system. EENT: No deficits noted. No signs and/or symptoms were reported regarding the EENT system. Derm: No deficits noted. No signs and/or symptoms reported regarding the dermatologic system. Musculoskeletal: No deficits noted. No signs and/or symptoms reported regarding the musculoskeletal system. 18:10 Reassessment: Patient appears in no apparent distress at this time. No changes from db previously documented assessment. Patient and/or family updated on plan of care and expected duration. Pain level reassessed. Patient is alert, oriented x 3, equal unlabored respirations, skin warm/dry/pink. 19:19 General: Appears in no apparent distress. Behavior is calm, cooperative. Pain: Denies ha1 pain. Neuro: Level of Consciousness is awake, alert, obeys commands, Oriented to person, place, time, situation. Cardiovascular: Patient's skin is warm and dry. Cardiovascular: Reports having chest pain early but not at this moment. Respiratory: Airway is patent Trachea midline Respiratory effort is even, unlabored, Respiratory pattern is regular, symmetrical. Vital Signs: 14:54 BP 130 / 82; Pulse 73; Resp 16; Temp 98.1; Pulse Ox 95% ; Weight 96.62 kg; Height 6 ft. db 1 in. (185.42 cm); 15:15 BP 132 / 90; Pulse 70; Resp 16; Pulse Ox 100% ; Pain 4/10; db 16:00 BP 114 / 83; Pulse 64; Resp 16; Pulse Ox 95% ; db 17:00 BP 108 / 76; Pulse 63; Resp 16; Pulse Ox 95% ; db 17:30 BP 121 / 77; Pulse 65; Resp 18; Pulse Ox 96% ; db 18:00 BP 136 / 95; Pulse 76; Resp 16; Pulse Ox 97% ; db 19:21 BP 129 / 85; Pulse 66; Resp 17; Pulse Ox 97% on R/A; ha1 14:54 Body Mass Index 28.10 (96.62 kg, 185.42 cm) db ED Course: 14:52 Patient arrived in ED. db 14:52 Bismark Rivera PA is PHCP. cp 14:52 Bismark Arredondo MD is Attending Physician. cp 15:12 Marielle Heaton, IRIS is Primary Nurse. db 15:15 Triage completed. db 15:16 EKG done, by ED staff, reviewed by Bismark VALDEZ. em1 15:35 Maintain EMS IV. Dressing intact. Good blood return noted. Site clean \T\ dry. Gauge \T\ db site: 20 Right AC. Patient maintains SpO2 saturation greater than 95% on room air. 16:09 XRAY Chest (1 view) In Process Unspecified. EDMS 18:33 Deana Butelr PA-C is Hospitalizing Provider. cp 18:39 Anton Bartlett is Hospitalizing Provider. cp 19:02 Patient has correct armband on for positive identification. Bed in low position. Call db light in reach. Side rails up X 1. Client placed on continuous cardiac and pulse oximetry monitoring. NIBP monitoring applied. Warm blanket given. 19:03 Report given to IRIS Berg. db 21:10 No provider procedures requiring assistance completed. Patient admitted, IV remains in ha1 place. 21:11 Arm band placed on right wrist. ha1 Administered Medications: 18:16 Drug: fentaNYL (PF) 25 mcg Route: IVP; Site: right antecubital; db 19:19 Drug: Depakote (divalproex) 1000 mg Route: PO; [facility] 20:39 Follow up: Response: No adverse reaction [facility] Medication: 15:15 VIS not applicable for this client. db Outcome: 18:33 Decision to Hospitalize by Provider. cp 21:10 Admitted to Med/surg accompanied by tech, via wheelchair, room 401, Report called to bernardo Roberts RN 21:10 Condition: stable 21:10 Discharge instructions given to patient, Instructed on the need for admit, Demonstrated understanding of instructions. 21:12 Patient left the ED. [facility] Signatures: Dispatcher [employer] EDRoman Cox em1 Bismark Rivera PA PA cp Ayala, Heidy, RN RN Marielle Moreno RN RN db
[2022-06-08] MEDS ORDERED: DIVALPROEX DR 250 MG TAB PO ONE (19:12)
--- NOTE | 2022-06-08 19:17 | P.HP ---
Certification for Inpatient Patient admitted to: Observation With expected LOS: <2 Midnights Patient will require the following post-hospital care: None Practitioner: I am a practitioner with admitting privileges, knowledge of patient current condition, hospital course, and medical plan of care. Services: Services provided to patient in accordance with Admission requirements found in Title 42 Section 412.3 of the Code of Federal Regulations Patient History Date of Service: 06/08/22 Reason for admission: Chest Pain History of Present Illness: Patient is a 67 year old male with history of hypertension who presented to the ED via EMS with complaints of chest pain. Patient was being seen at the [facility] today and reported some sharp chest pain so he was sent to this facility for evaluation. EMS administered aspirin and nitro. EKG showed NSR. Labs within normal limits, including troponin. Patient was admitted here 4 months ago for similar symptoms and instructed to follow up with cardiology. [facility] He states that his chest pain has now resolved but he has been experiencing these symptoms 4-5 times a week. He reports last stress test over 10 years ago and denies ever having an echo or cardiac cath. Patient is admitted for observation. Allergies meperidine [From Demerol] Allergy (Mild, Verified 02/01/22 04:22) Nausea/Vomiting Home medications list reviewed: Yes Home Medications: ARIPiprazole [Aripiprazole] 10 mg PO DAILY 02/01/22 Acetaminophen 650 mg PO BIDP PRN 02/01/22 Aspirin 81 mg PO DAILY 02/01/22 Atorvastatin Calcium [Lipitor] 80 mg PO BEDTIME 02/01/22 Divalproex Sodium [Divalproex Sodium ER] 1,000 mg PO BID 02/01/22 Gabapentin 900 mg PO BID 02/01/22 Guaifenesin [Mucinex] 600 mg PO BID #20 tablet.er 02/01/22 Levofloxacin [Levaquin] 500 mg PO DAILY #5 tablet 02/01/22 Levothyroxine Sodium [Levothyroxine] 25 mcg PO DAILY 02/01/22 Omeprazole 20 mg PO DAILY 02/01/22 Sertraline HCl 200 mg PO DAILY 02/01/22 lisinopriL [Lisinopril] 10 mg PO DAILY 02/01/22 - Past Medical/Surgical History Diabetic: Yes -: Type 2 Diabetes, Non-Insulin Dependent -: Hypertension -: Seizure Disorder -: PTSD Past Surgical History: Patient denies surgical history Psychosocial/ Personal History: Patient is a . He lives at home. - Family History Family History: Reviewed- Non-Contributory - Social History Smoking Status: Never smoker Alcohol use: Yes CD- Drugs: No Caffeine use: Yes Place of Residence: Home Review of Systems Cardiovascular: Chest Pain Physical Examination - Physical Exam General: Alert, In no apparent distress HEENT: Atraumatic, PERRLA, EOMI, Sclerae nonicteric Neck: Supple, 2+ carotid pulse no bruit, No LAD, Without JVD or thyroid abnormality Respiratory: Clear to auscultation bilaterally, Normal air movement Cardiovascular: Regular rate/rhythm, Normal S1 S2 Gastrointestinal: Normal bowel sounds, No tenderness Musculoskeletal: No tenderness Integumentary: No rashes Neurological: Normal speech, Normal strength at 5/5 x4 extr, Normal tone, Normal affect - Studies Laboratory Data (last 24 hrs) 06/08/22 15:25: PT 11.0, INR 1.00 06/08/22 15:25: WBC 6.70, Hgb 14.3, Hct 42.0, Plt Count 263 06/08/22 15:25: Sodium 138, Potassium 3.8, BUN 22 H, Creatinine 0.83, Glucose 103, Magnesium 2.0, Total Bilirubin 0.2, AST 18, ALT 26, Alkaline Phosphatase 79 Assessment and Plan - Problems (Diagnosis) (1) Chest pain Current Visit: No Status: Acute Qualifiers: Chest pain type: unspecified Qualified Code(s): R07.9 - Chest pain, unspecified (2) Hypertension Current Visit: Yes Status: Chronic Qualifiers: Hypertension type: primary hypertension Qualified Code(s): I10 - Essential (primary) hypertension - Plan -Patient is admitted for observation -Cardiology consult -Initial troponin negative. Trend -Echo ordered -TSH and lipid panel ordered -Aspirin and atorvastatin daily -Reconcile and continue home medications -Monitor and replete electrolytes per protocol -Lovenox for VTE prophylaxis -Full code Discharge Plan: Home Plan to discharge in: 24 Hours - Advance Directives Does patient have a Living Will: No Does patient have a Durable POA for Healthcare: No - Code Status/Comfort Care Code Status Assessed: Yes (Full) Critical Care: No Time Spent Managing Pts Care (In Minutes): 50
[2022-06-08 20:29] LABS: SARS-CoV-2 Antigen Rapid Res Negative (Negative)
[2022-06-08] MEDS ORDERED: ONDANSETRON 4 MG/2 ML VIAL IV PRN (21:34)
[2022-06-08] MEDS ORDERED: ACETAMINOPHEN 500 MG TAB PO PRN (21:34)
[2022-06-08] MEDS ORDERED: ATORVASTATIN 40 MG TAB PO SCH (21:34)
[2022-06-08 21:43] VITALS: O2SAT 97
[2022-06-08 21:45] VITALS: BMI 28.2
[2022-06-09 03:46] LABS: Absolute Lymphocytes (CBC) 3.1 K/uL (0.7-4.9); Hematocrit 40.8 % (39.6-49.0); Lymphocytes % 45.3 % (15.3-44.8); MCV 85.9 fL (80-100); MPV 7.4 fL (7.6-11.3); RBC Red Blood Cell Count 4.75 M/uL (4.33-5.43)
[2022-06-09 04:00] LABS: Magnesium 2.1 mg/dL (1.8-2.4); Phosphorus 3.2 mg/dL (2.5-4.9); Potassium 4.6 mmol/L (3.5-5.1)
[2022-06-09 04:19] LABS: Thyroid Stimulating Hormone 1.42 uIU/mL (0.360-3.740)
[2022-06-09] MEDS ORDERED: PNEUMOCOCCAL VACCINE 0.5 ML IMVAC ONE (08:00)
[2022-06-09] MEDS ORDERED: INFLUENZA VACCINE (for 6+ mo) 0.5 ML DOSE IMVAC ONE (08:00)
[2022-06-09] MEDS ORDERED: ENOXAPARIN 40 MG/0.4 ML SQ SCH (09:00)
[2022-06-09] MEDS ORDERED: ASPIRIN EC 81 MG TAB PO SCH (09:00)
[2022-06-09 09:02] VITALS: TEMP 97
[2022-06-09] MEDS ORDERED: REGADENOSON 0.4 MG/5 ML SYR IV ONE (10:05)
--- NOTE | 2022-06-09 12:17 | RAD REPORT ---
EXAM DESCRIPTION: NM - Rest Stress Cardiac Imaging - 06/09/2022 12:02 pm CLINICAL HISTORY: Chest pain COMPARISON: None. TECHNIQUE: The patient was administered 10.3 mCi of Tc 99m Sestamibi prior to resting SPECT imaging of the heart. The patient was then administered 32.1 mCi of Tc 99m Sestamibi following exercise or ph armacologic stress. Multiplanar SPECT images were reviewed. FINDINGS: The end diastolic volume is 102 ml, the end systolic volume is 42 ml, and the ejection fra ction is 58 %. Large fixed perfusion abnormality involves the base and midportion of the inferior wall extending par tially to the lateral and septal lala. This does not change between rest and stress imaging. Inferio r wall at the apex shows normal perfusion. No stress-induced ischemic changes are identifiable. There is a small defect in the anterior wall patel r the apex seen only on rest imaging. This could be a small focus of hibernating myocardium. IMPRESSION: No stress-induced ischemic change identifiable. Large fixed defect along the inferior wall is favored to be scarring rather than diaphragm attenuatio n artifact. Correlation can be made with history EKG findings. End-diastolic volume is upper normal at 102 mL. Ejection fraction is normal range at 58%.
--- NOTE | 2022-06-09 13:46 | P.DS ---
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 Patient was being seen at [facility] today and reported some sharp chest pain so he was sent to this facility for evaluation. EMS administered aspirin and nitro. EKG showed NSR. Labs within normal limits, including troponin. Patient was admitted here 4 months ago for similar symptoms and instructed to follow up with cardiology. [facility] He states that his chest pain has now resolved but he has been experiencing these symptoms 4-5 times a week. He reported last stress test over 10 years ago and denied ever having an echo or cardiac cath. Patient was placed on observation for further management. Hospital Course: Troponin trended negative. Patient was asymptomatic during the hospital stay. Nuclear stress test was performed which was negative for stress-induced ischemia but reported large fixed defect along the inferior wall. ACS ruled out. Patient is deemed stable for discharge. He is advised to continue aspirin and Lipitor. Vital Signs/Physical Exam: Temp Pulse Resp BP Pulse Ox 97.0 F 70 14 162/85 H 98 06/09/22 12:00 06/09/22 12:00 06/09/22 12:00 06/09/22 12:00 06/09/22 12:00 General: Alert, In no apparent distress, Oriented x3 HEENT: Mucous membr. moist/pink Neck: Supple, JVD not distended Respiratory: Clear to auscultation bilaterally, Normal air movement Cardiovascular: Regular rate/rhythm, Normal S1 S2 Gastrointestinal: Soft and benign, Non-distended, No tenderness Musculoskeletal: No swelling Integumentary: No rashes Neurological: Normal strength at 5/5 x4 extr Laboratory Data at Discharge: WBC 6.80 K/uL (4.3-10.9) 06/09/22 03:16 Hgb 13.9 g/dL (13.6-17.9) 06/09/22 03:16 Hct 40.8 % (39.6-49.0) 06/09/22 03:16 Plt Count 243 K/uL (152-406) 06/09/22 03:16 PT 11.0 SECONDS (9.5-12.5) 06/08/22 15:25 INR 1.00 06/08/22 15:25 Sodium 139 mmol/L (136-145) 06/09/22 03:16 Potassium 4.6 mmol/L (3.5-5.1) D 06/09/22 03:16 BUN 18 mg/dL (7-18) 06/09/22 03:16 Creatinine 0.85 mg/dL (0.55-1.3) 06/09/22 03:16 Glucose 119 mg/dL (74-106) H 06/09/22 03:16 Phosphorus 3.2 mg/dL (2.5-4.9) 06/09/22 03:16 Magnesium 2.1 mg/dL (1.8-2.4) 06/09/22 03:16 Total Bilirubin 0.2 mg/dL (0.2-1.0) 06/08/22 15:25 AST 18 U/L (15-37) 06/08/22 15:25 ALT 26 U/L (12-78) 06/08/22 15:25 Alkaline Phosphatase 79 U/L (45-117) 06/08/22 15:25 Triglycerides 207 mg/dL (<150) H 06/09/22 03:16 Cholesterol 187 mg/dL (<200) 06/09/22 03:16 HDL Cholesterol 45 mg/dL (40-60) 06/09/22 03:16 Cholesterol/HDL Ratio 4.16 06/09/22 03:16 Home Medications: Acetaminophen 650 mg PO BIDP PRN 02/01/22 ARIPiprazole [Aripiprazole] 10 mg PO DAILY #30 tab 06/09/22 Aspirin 81 mg PO DAILY #30 tab.chew 06/09/22 Atorvastatin Calcium [Lipitor] 80 mg PO BEDTIME #30 tab 06/09/22 Divalproex Sodium [Divalproex Sodium ER] 1,000 mg PO BID #60 tab 06/09/22 Gabapentin 900 mg PO BID #180 cap 06/09/22 Levothyroxine Sodium [Levothyroxine] 25 mcg PO DAILY #30 tab 06/09/22 Omeprazole 20 mg PO DAILY #30 tab 06/09/22 Sertraline HCl 200 mg PO DAILY #30 tab 06/09/22 lisinopriL [Lisinopril] 10 mg PO DAILY #30 tab 06/09/22 New Medications: ARIPiprazole [Aripiprazole] 10 mg PO DAILY #30 tab Aspirin 81 mg PO DAILY #30 tab.chew Divalproex Sodium [Divalproex Sodium ER] 1,000 mg PO BID #60 tab Gabapentin 900 mg PO BID #180 cap Levothyroxine Sodium [Levothyroxine] 25 mcg PO DAILY #30 tab Atorvastatin Calcium [Lipitor] 80 mg PO BEDTIME #30 tab lisinopriL [Lisinopril] 10 mg PO DAILY #30 tab Omeprazole 20 mg PO DAILY #30 tab Sertraline HCl 200 mg PO DAILY #30 tab Physician Discharge Instructions: PROBLEM: (list out Acute Problems for the Current visit) Chest Pain GOAL: Clear understanding of disease process INSTRUCTIONS: Follow up with PCP in 1 week Follow up with video production intern in 1 week Diet: AHA Activity: Ad celestina Diet: AHA Activity: Ad celestina Followup: NONE,NONE [Primary Care Provider] -
[2022-06-09 16:12] VITALS: BP 132/64
--- NOTE | 2022-06-09 16:16 | EKG ---
Test Date: 2022-06-08 Test Time: 15:10:25 Water Softener Servicer: JOLEEN MEASUREMENT RESULTS: Intervals: Rate: 76 WV: 182 QRSD: 84 QT: 398 QTc: 447 [place]: P: 36 WV: 182 QRS: 1 T: 38 INTERPRETIVE STATEMENTS: Normal sinus rhythm Normal ECG Compared to ECG 02/01/2022 02:00:04 No significant changes Electronically Signed On 06-09-22 16:15:05 CDT by Austin Villatoro
--- NOTE | 2022-06-09 22:03 | CON ---
Date of Consultation: 06/09/2022 Reason For Consultation: Chest pain. History Of Present Illness: This is a 67-year-old male with history of hypertension. He goes to the [facility], comes complaining of chest pain, sharp in nature, not related to exertion and denies having any shortness of breath, nausea, vomiting, or diaphoresis. He denies having an exertional chest pain. 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 Past Medical History: Hypertension, type 2 diabetes, seizure disorder, posttraumatic stress disorder . Medications: Refer reconciliation sheet for detailed list. Allergies: MEPERIDINE. Family History: No premature coronary artery disease or cancer. Social History: Does not smoke or drink. Does not use any drugs. Review of Systems: All systems reviewed and are negative except as mentioned in the HPI. Physical Examination: Vital Signs: Reviewed. Head and Neck: Pupils are equal, reactive to light. Intact eye movements. No JVD. No cervical lym phadenopathy. Neck is supple. Thyroid is not enlarged. Lungs: Clear to auscultation bilaterally. No rhonchi, rales, or crackles. No accessory muscle use. Heart: Regular rate and rhythm. No extra sounds. Abdomen: Soft, nontender. Bowel sounds are positive. No organomegaly. No masses or hernia. No ri gidity or rebound. Extremities: No clubbing or cyanosis. Intact pulses. Skin: No rashes. Neurologic: Alert, awake, oriented x3. No acute focal deficits appreciated. Investigations: His troponins are negative. Lexiscan nuclear stress test was negative for ischemia and ejection fraction was normal on echo. Assessment And Recommendation: 1.Chest pain. Negative troponin, negative stress test, and normal echo. Patient was assured from C ardiology standpoint. Patient can be discharged and follow up as an outpatient. 2.Hypertension. Blood pressure is acceptable. Continue current medications. SR/MODL Voice ID: [id number] Report ID: [id number]
--- NOTE | 2022-06-10 07:02 | ECHO ---
HEIGHT: 6 ft 1 in WEIGHT: 213 lb 11.2 oz DATE OF STUDY: 06/09/[address]: Deana Butler 2-DIMENSIONAL: YES M.MODE: YES DOPPLER: YES COLOR FLOW: YES TDS: NO PORTABLE: YES DEFINITY: NO BUBBLE STUDY: NO DIAGNOSIS: CHEST PAIN CARDIAC HISTORY: CATHERIZATION: SURGERY: PROSTHETIC VALVE: PACEMAKER: MEASUREMENTS (cm) DIASTOLIC (NORMALS) SYSTOLIC (NORMALS) IVSd 0.9 (0.6-1.2) LA Diam 3.8 (1.9-4.0) LVEF 72% LVIDd 4.0 (3.5-5.7) LVIDs 2.4 (2.0-3.5) %FS 40% LVPWd 1.1 (0.6-1.2) Ao Diam 3.4 (2.0-3.7) 2 DIMENSIONAL ASSESSMENT: RIGHT ATRIUM: NORMAL LEFT ATRIUM: NORMAL RIGHT VENTRICLE: NORMAL LEFT VENTRICLE: NORMAL TRICUSPID VALVE: MITRAL VALVE: PULMONIC VALVE: NORMAL AORTIC VALVE: NORMAL PERICARDIAL EFFUSION: NONE AORTIC ROOT: NORMAL LEFT VENTRICULAR WALL MOTION: NORMAL DOPPLER/COLOR FLOW: MILD TRICUSPID AND MITRAL REGURGITATION. COMMENTS: NORMAL LEFT VENTRICULAR EJECTION FRACTION 60-65%. NORMAL WALL MOTION. MILD TRICUSPID AND MITRAL REGURGITATION. NORMAL DIASTOLIC FUNCTION. TECHNOLOGIST: Sarah YU
--- NOTE | 2022-06-10 07:28 | TREADPHA ---
DX: CHEST PAIN Date of Study: 06/09/2022 Ht: 6' 1 " Wt: 213 lb 11.2 oz Consulting Physician: FRANCES MEDICATIONS: HISTORY: 67 YEAR OLD MALE WITH COMPAINTS OF CHEST PAIN. HISTORY OF DIABETES MELLITUS, HYPERTENSION, SEIZURES, PTSD, CHEWS TOBACCO, NON DRINKER. PHYSICIAL EXAMINATION: RESTING B.P.: 155/83 RESTING H.R.: 66 RESTING EKG: NORMAL SINUS RHTYHM, WITHIN NORMAL LIMITS PROTOCOL: LEXISCAN EXERCISE TIME: 3:30 B.P. AT PEAK STRESS: 162/78 IMPRESSION: LEXISCAN INJECTED FOLLOWED BY CARDIOLITE PER PROTOCOL. SEE NUCLEAR MEDICINE REPORT. NO SUPRAVENTRICULAR OR VENTRICULAR TACHYCARDIA. NO PREMATURE ATRIAL COMPLEXES. NO PREMATURE VENTRICULAR COMPLEXES. PATIENT REPORTS NO CHEST PAIN. NO EKG CHANGES OF ISCHEMIA WITH LEXISCAN.
== END 2022-06-09 16:16 | disposition home or self-care (01) ==
LOC: ER 14:40 → ERHOLD 19:07 → 4TH 21:04
PROVIDERS: ADMIT Internal Medicine; ATTEND Internal Medicine
DX: R07.9 Chest pain, unspecified (principal); I10 Essential (primary) hypertension; Z88.6 Allergy status to analgesic agent; E11.9 Type 2 diabetes mellitus without complications; R56.9 Unspecified convulsions; F43.10 Post-traumatic stress disorder, unspecified; Z20.822 Contact with and (suspected) exposure to COVID-19
CPT/HCPCS: 93005; 93017; 93306; 85025 ×2; 80048 ×2; 36415; 83735 ×2; 84100; 85610; 80061; 80076; 84443; 84484 ×2; 83880; 71045; 78452; 96374; 99285; 87811; J1650; J3010; J2785; A9500; G0378 ×3

== ENCOUNTER 2022-06-28 15:25 | Emergency (ER) | payer MEDICARE, OTHER ==
--- OUTSIDE RECORDS SUMMARY | 2022-06-28 15:27 | XMS REPORT | Continuity of Care Document ---
:1955 Author Organization [facility] t Address [address] [place] [address] Care Team Providers Name Role Phone GAYLORD_S Attending Clinician Unavailable OWENS_T Attending Clinician Unavailable GAYLORD_S Admitting Clinician Unavailable OWENS_T Admitting Clinician Unavailable Payers Payer Name Policy Type Policy Number Effective Date Expiration Date S robert [facility] [id number] 2020 (MEDICARE 00:00:00 REPLACEMENT HMO) Problems This patient has no known problems. Allergies, Adverse Reactions, Alerts This patient has no known allergies or adverse reactions. Medications This patient has no known medications. Procedures This patient has no known procedures. Encounters Start End Encounter Admission Attending Care Care Encounter Source Date/Time Date/Time Type Type Clinicians Facility Department ID 2022-05-20 2022-05-20 Outpatient [id number] 00:00:00 [facility] 2022-03-04 2022-03-04 Outpatient [facility] [id number] -2021 [facility] 03:28:00 03:28:00 0715 [facility] 2021-12-10 2021-12-10 Outpatient [facility] [id number] -2021 [facility] 12:01:00 12:01:00 0422 [facility] 2021-09-28 2021-09-28 Outpatient [facility] [id number] -2021 [facility] 08:00:00 08:00:00 0208 [facility] 2021-09-23 2021-09-23 Outpatient [facility] [id number] -2021 [facility] 07:33:00 07:33:00 0203 [facility] 2020-12-16 2020-12-16 Outpatient OWENS[facility]T [facility] [id number] [facility] 04:25:00 04:25:00 0428 [facility] 2020-11-21 2020-11-21 [id number] 06:02:00 06:02:00 0403 [facility] Results This patient has no known results.
[2022-06-28] MEDS ORDERED: FENTANYL CITR 100 MCG/2 ML ONE (16:02)
[2022-06-28 16:07] LABS: Hematocrit 42.5 % (39.6-49.0); MCV 86.4 fL (80-100); MPV 7.3 fL (7.6-11.3); RBC Red Blood Cell Count 4.92 M/uL (4.33-5.43)
--- NOTE | 2022-06-28 16:07 | RAD REPORT ---
EXAM DESCRIPTION: RAD - Chest Single View - 06/28/2022 3:58 pm CLINICAL HISTORY: fall Chest pain. COMPARISON: Chest Single View dated 06/08/2022; Chest Pa And Lat (2 Views) dated 01/31/2022 FINDINGS: Portable technique limits examination quality. The lungs are grossly clear. The heart is normal in size. No displaced fractures. IMPRESSION: No acute intrathoracic process suspected.
--- NOTE | 2022-06-28 16:08 | RAD REPORT ---
EXAM DESCRIPTION: RAD - Knee Left 3 View - 06/28/2022 3:58 pm CLINICAL HISTORY: fall Fall, pain COMPARISON: No comparisons FINDINGS: Left total knee arthroplasty is present. No evidence of hardware loosening or infection. N o acute fracture seen. No joint effusion suspected. IMPRESSION: No acute process demonstrated.
[2022-06-28 16:20] LABS: Magnesium 2.1 mg/dL (1.8-2.4); Troponin High Sensitivity 28.8 pg/mL (<58.9)
--- NOTE | 2022-06-28 18:00 | RAD REPORT ---
EXAM DESCRIPTION: CT - CTHCSPWOC - 06/28/2022 5:37 pm CLINICAL HISTORY: Trauma, head and neck injury. fall COMPARISON: No comparisons TECHNIQUE: Axial 5 mm thick images of the head were obtained. Axial 2 mm thick images of the cervical spine were obtained with sagittal and coronal reconstruction images generated and reviewed. All CT scans are performed using dose optimization technique as appropriate and may include automated exposure control or mA/KV adjustment according to patient size. FINDINGS: CT HEAD WITHOUT CONTRAST: No acute hemorrhage, hydrocephalus or extra-axial collection is identified.No areas of brain edema or midline shift. The paranasal sinuses and mastoids are clear.The calvarium is intact. CT CERVICAL SPINE WITHOUT CONTRAST: No fracture or subluxation.No prevertebral soft tissues swelling is identified. IMPRESSION: No acute intracranial or cervical spine findings.
--- NOTE | 2022-06-28 18:11 | EDPHYS ---
Physician Documentation [facility] Name: Davis Kramer Age: 67 yrs Sex: Male : 1955 Arrival Date: 06/28/2022 Time: 15:28 Bed 16 Private MD: ED Physician Edwin Tellez HPI: 06/28 15:45 This 67 yrs old Male presents to ER via EMS with complaints of Fall. cp 15:45 Details of fall: The patient fell from an upright position, while walking. cp 15:45 Onset: The symptoms/episode began/occurred just prior to arrival. Associated injuries: cp The patient sustained neck injury, pain, left knee. Patient reports he was walking into home when he tripped and fell to ground. Historical: - Allergies: 15:32 Demerol; bp 15:32 Morphine; bp - Home Meds: 15:32 Depakote Oral [Active]; bp - PMHx: 15:32 Hypertensive disorder; PTSD; bp - Immunization history:: Adult Immunizations up to date. - Social history:: Smoking status: Patient reports the use of cigarette tobacco products, unknown amount. ROS: 15:50 Constitutional: Negative for body aches, chills, fever, poor PO intake. cp 15:50 Eyes: Negative for injury, pain, redness, and discharge. cp 15:50 Neck: Positive for pain at rest, tenderness. 15:50 Cardiovascular: Negative for chest pain, palpitations. 15:50 Respiratory: Negative for cough, shortness of breath, wheezing. 15:50 Abdomen/GI: Negative for abdominal pain, nausea, vomiting, and diarrhea. 15:50 Back: Negative for pain at rest, pain with movement. 15:50 MS/extremity: Positive for pain, tenderness, of the left knee, Negative for decreased range of motion, deformity. Exam: 15:55 Constitutional: The patient appears in no acute distress, alert, awake, cp non-diaphoretic, non-toxic, well developed, well nourished. 15:55 Head/Face: Normocephalic, atraumatic. cp 15:55 Eyes: Periorbital structures: appear normal, Pupils: equal, round, and reactive to light and accomodation, Extraocular movements: intact throughout, Conjunctiva: normal, no exudate, no injection, Sclera: no appreciated abnormality, Lids and lashes: appear normal, bilaterally. 15:55 ENT: External ear(s): are unremarkable, Nose: is normal, Mouth: Lips: moist, Oral mucosa: pink and intact, moist, Posterior pharynx: Airway: no evidence of obstruction, patent. 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 15:55 Chest/axilla: Inspection: normal, Palpation: is normal, no crepitus, no tenderness. 15:55 Cardiovascular: Rate: normal, Rhythm: regular, Edema: is not appreciated, JVD: is not appreciated. 15:55 Respiratory: the patient does not display signs of respiratory distress, Respirations: normal, no use of accessory muscles, no retractions, labored breathing, is not present, Breath sounds: are clear throughout, no decreased breath sounds, no stridor, no wheezing. 15:55 Abdomen/GI: Inspection: abdomen appears normal, Palpation: abdomen is soft and non-tender, in all quadrants. 15:55 Back: pain, is absent, ROM is normal, vertebral tenderness, is not appreciated. 15:55 Musculoskeletal/extremity: Extremities: noted in the left knee: pain, tenderness, There is no evidence of decreased ROM, deformity, ROM: limited active range of motion due to pain, in the left knee. 15:55 Neuro: Orientation: to person, place \T\ time. Mentation: able to follow commands, slow to respond, Motor: moves all fours, strength is normal, Sensation: is normal. Vital Signs: 15:30 BP 154 / 106; Pulse 69; Resp 16; Temp 98; Pulse Ox 96% ; bp 16:35 BP 125 / 92; Pulse 63; Resp 14; Pulse Ox 98% on R/A; Pain 5/10; mb8 MDM: 15:36 Patient medically screened. rn 16:00 Differential diagnosis: closed head injury, contusion, fracture, multiple trauma. cp 18:10 Data reviewed: vital signs, nurses notes, lab test result(s), radiologic studies, CT cp scan, plain films. 18:10 Counseling: I had a detailed discussion with the patient and/or guardian regarding: the cp historical points, exam findings, and any diagnostic results supporting the discharge/admit diagnosis, lab results, radiology results, to return to the emergency department if symptoms worsen or persist or if there are any questions or concerns that arise at home. Response to treatment: the patient's symptoms have markedly improved after treatment, and as a result, I will discharge patient. 06/28 15:32 Order name: glucometer results - FOR PT WITH NO ID bp 06/28 15:43 Order name: Basic Metabolic Panel; Complete Time: 16:36 cp 06/28 15:43 Order name: CBC with Diff; Complete Time: 16:36 cp 06/28 15:43 Order name: Magnesium; Complete Time: 16:36 cp 06/28 15:43 Order name: Troponin HS; Complete Time: 16:36 cp 06/28 15:43 Order name: XRAY Chest (1 view); Complete Time: 16:36 cp 06/28 16:36 Interpretation: Report review. 06/28 15:43 Order name: Cardiac monitoring; Complete Time: 15:57 cp 06/28 15:43 Order name: EKG - Nurse/Tech; Complete Time: 15:57 cp 06/28 15:43 Order name: IV Saline Lock; Complete Time: 15:57 06/28 15:44 Order name: XRAY Knee LEFT 3 view; Complete Time: 16:36 cp 06/28 16:36 Order name: CT Head C Spine; Complete Time: 18:06 cp 06/28 18:06 Interpretation: Reviewed report. 06/28 15:43 Order name: Labs collected and sent; Complete Time: 15:57 cp 06/28 15:43 Order name: O2 Per Protocol; Complete Time: 15:57 06/28 15:43 Order name: O2 Sat Monitoring; Complete Time: 15:57 cp Administered Medications: 16:07 Drug: fentaNYL (PF) 25 mcg Route: IVP; Site: left antecubital; mb8 16:40 Follow up: Response: No adverse reaction iw Disposition Summary: 06/28/22 18:11 Discharge Ordered Location: Home cp Problem: new cp Symptoms: have improved cp Condition: Stable cp Diagnosis - Fall on same level, unspecified cp - Dorsalgia, unspecified cp - Pain in left knee cp Followup: cp - With: Private Physician - When: 2 - 3 days - Reason: Recheck today's complaints Discharge Instructions: - Discharge Summary Sheet cp - Elastic Bandage and RICE Therapy cp - Fall Prevention in the Home, Adult cp - Acute Knee Pain, Adult cp - Neck Exercises cp Forms: - Medication Reconciliation Form cp - Thank You Letter cp - Antibiotic Education cp - Prescription Opioid Use cp Prescriptions: - Naprosyn 500 mg Oral Tablet - take 1 tablet by ORAL route 2 times per day take with food; 20 tablet; Refills: cp 0, Product Selection Permitted Addendum: 06/30/2022 07:14 Co-signature as Attending Physician, Edwin Tellez MD. r n Signatures: Dispatcher [employer] EDUT Edwin Tellez MD MD rn Bismark Rivera PA PA cp Eusebio Mirza RN RN bp Brent Nelson RN RN mb8 Yael Juan RN iw Corrections: (The following items were deleted from the chart) 06/28 15:33 15:32 PMHx: Seizure; bp bp
--- NOTE | 2022-06-28 18:11 | ER ---
Nurse's Notes [facility] Name: Davis Kramer Age: 67 yrs Sex: Male : 1955 Arrival Date: 06/28/2022 Time: 15:28 Bed 16 Private MD: Diagnosis: Fall on same level, unspecified;Dorsalgia, unspecified;Pain in left knee Presentation: 06/28 15:30 Chief complaint: EMS states: FOUND LAYING ON GROUND WITH ALLEGED HYPOGLYCEMIA. bp Coronavirus screen: At this time, the client does not indicate any symptoms associated with coronavirus-19. Ebola Screen: No symptoms or risks identified at this time. Initial Sepsis Screen: Does the patient meet any 2 criteria? No. Patient's initial sepsis screen is negative. Does the patient have a suspected source of infection? No. Patient's initial sepsis screen is negative. Risk Assessment: Do you want to hurt yourself or someone else? Patient reports no desire to harm self or others. Onset of symptoms is unknown. Care prior to arrival: Glucose check: 109. 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 Triage Assessment: 15:32 General: Appears in no apparent distress. unkempt, Behavior is agitated, combative, bp Smells of alcohol. Pain: Denies pain. EENT: No deficits noted. Neuro: Level of Consciousness is awake, alert, obeys commands, Oriented to Appropriate for age. Cardiovascular: No deficits noted. Respiratory: No deficits noted. GI: No signs and/or symptoms were reported involving the gastrointestinal system. : No signs and/or symptoms were reported regarding the genitourinary system. Derm: No deficits noted. Musculoskeletal: No deficits noted. Historical: - Allergies: 15:32 Demerol; bp 15:32 Morphine; bp - Home Meds: 15:32 Depakote Oral [Active]; bp - PMHx: 15:32 Hypertensive disorder; PTSD; bp - Immunization history:: Adult Immunizations up to date. - Social history:: Smoking status: Patient reports the use of cigarette tobacco products, unknown amount. Screenin:35 Abuse screen: Denies threats or abuse. Denies injuries from another. Nutritional bp screening: No deficits noted. Tuberculosis screening: No symptoms or risk factors identified. Fall Risk None identified. Assessment: 15:35 General: SEE TRIAGE NOTE. 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 16:08 Cardiovascular: Rhythm is sinus rhythm. mb8 Vital Signs: 15:30 BP 154 / 106; Pulse 69; Resp 16; Temp 98; Pulse Ox 96% ; bp 16:35 BP 125 / 92; Pulse 63; Resp 14; Pulse Ox 98% on R/A; Pain 5/10; mb8 Vitals: 16:35 Cardiac Rhythm Assessment Sinus rhythm. mb8 ED Course: 15:28 Patient arrived in ED. mb8 15:28 Eusebio Mirza, RN is Primary Nurse. bp 15:32 Triage completed. bp 15:32 Arm band placed on. bp 15:35 Bismark Rivera PA is PHCP. rn 15:35 Edwin Tellez MD is Attending Physician. rn 15:35 Patient has correct armband on for positive identification. Bed in low position. Call bp light in reach. Side rails up X2. 15:57 Brent Nelson, RN is Primary Nurse. mb8 16:00 XRAY Chest (1 view) In Process Unspecified. EDMS 16:00 XRAY Knee LEFT 3 view In Process Unspecified. EDMS 16:00 Inserted saline lock: 20 gauge in left antecubital area, using aseptic technique. Blood mb8 collected. 16:07 No provider procedures requiring assistance completed. mb8 17:04 Report given to Yael SIMMONS. mb8 17:39 CT Head C Spine In Process Unspecified. EDMS 18:17 Yael Juan, RN is Primary Nurse. iw 18:28 IV discontinued, intact, bleeding controlled, No redness/swelling at site. Pressure iw dressing applied. Administered Medications: 16:07 Drug: fentaNYL (PF) 25 mcg Route: IVP; Site: left antecubital; mb8 16:40 Follow up: Response: No adverse reaction iw Medication: 15:35 VIS not applicable for this client. bp Outcome: 18:11 Discharge ordered by . cp 18:28 Discharged to home ambulatory. iw 18:28 Condition: good 18:28 Discharge instructions given to patient, Instructed on discharge instructions, follow up and referral plans. Demonstrated understanding of instructions, follow-up care. 18:28 Patient left the ED. iw Signatures: Dispatcher [employer] Yael Wayne, RN RN iw Edwin Tellez MD MD rn Page, Corey, PA PA cp Peltier, Brian, RN RN Brent Reaves RN RN mb8 Corrections: (The following items were deleted from the chart) 15:33 15:32 PMHx: Seizure; bp bp
[2022-06-28 18:40] VITALS: TEMP 98
[2022-06-28 18:41] VITALS: BP 125/92; O2SAT 98
== END 2022-06-28 18:28 | disposition home or self-care (01) ==
LOC: ER 15:25
DX: M54.9 Dorsalgia, unspecified (principal); M25.562 Pain in left knee; W18.30XA Fall on same level, unspecified, initial encounter; I10 Essential (primary) hypertension; Z72.0 Tobacco use; Z88.5 Allergy status to narcotic agent
CPT/HCPCS: 85025; 80048; 36415; 83735; 82947; 84484; 70450; 72125; 71045; 73562; 96374; 99285; J3010

== ENCOUNTER 2023-01-20 00:40 | Observation (INO) | payer MEDICARE, OTHER ==
--- OUTSIDE RECORDS SUMMARY | 2023-01-20 00:43 | XMS REPORT | Continuity of Care Document ---
:1955 Author Organization [facility] t Address [address] [place] [address] Care Team Providers Name Role Phone Adam Daniel Attending Clinician Irasema Abreu Attending Clinician GAYLORD_S Attending Clinician Unavailable OWENS_T Attending Clinician Unavailable GAYLORD_S Admitting Clinician Unavailable OWENS_T Admitting Clinician Unavailable Payers Payer Name Policy Type Policy Number Effective Date Expiration Date [facility] [id number] 2020 (MEDICARE 00:00:00 REPLACEMENT HMO) Problems This patient has no known problems. Allergies, Adverse Reactions, Alerts This patient has no known allergies or adverse reactions. Medications This patient has no known medications. Procedures This patient has no known procedures. Encounters Start End Encounter Admission Attending Care Care Encounter Source Date/Time Date/Time Type Type Clinicians Facility Department ID 2022-09-19 2022-09-19 CAV Adam [id number] [facility] [id number] [facility] 14:30:00 15:30:00 María [id number] [id number] 2022-06-15 2022-06-15 GLADYS Villalpando [id number] [facility] [id number] [facility] 15:30:00 16:30:00 Brady [id number] [id number] 2022-06-15 2022-06-15 Outpatient GAYLORD_S [facility] [id number] -2022 [facility] 00:00:00 00:00:00 0506 [facility] 2022-05-20 2022-05-20 Outpatient GAYLORD_S [facility]G [facility] [id number] -2021 [facility] 00:00:00 00:00:00 0930 Medica l Group 2022-03-04 2022-03-04 Outpatient GAYLORD_S [facility]G [facility] [id number] -2021 [facility] 03:28:00 03:28:00 0715 Medica l Group 2021-12-10 2021-12-10 Outpatient GAYLORD_S [facility] [id number] -2021 [facility] 12:01:00 12:01:00 0422 Medica l Group 2021-09-28 2021-09-28 Outpatient GAYLORD_S [facility]G [facility] [id number] -2021 [facility] 08:00:00 08:00:00 0208 Medica l Group 2021-09-23 2021-09-23 Outpatient GAYLORD_S [facility]G [facility] [id number] -2021 [facility] 07:33:00 07:33:00 0203 Medica l Group 2020-12-16 2020-12-16 Outpatient OWENS_T DMG [facility] [id number] [facility] 04:25:00 04:25:00 0428 Medica l Group 2020-11-21 2020-11-21 Outpatient DMG DMG [id number] [facility] 06:02:00 06:02:00 0403 Medica l Group Results This patient has no known results.
[2023-01-20 01:22] LABS: Absolute Lymphocytes (CBC) 2.3 K/uL (0.7-4.9); Hematocrit 42.7 % (39.6-49.0); Lymphocytes % 32.4 % (15.3-44.8); MCV 84.8 fL (80-100); MPV 7.4 fL (7.6-11.3); RBC Red Blood Cell Count 5.03 M/uL (4.33-5.43)
--- NOTE | 2023-01-20 01:37 | ER ---
Nurse's Notes [facility] Name: Davis Kramer Age: 67 yrs Sex: Male : 1955 Arrival Date: 01/20/2023 Time: 00:40 Bed 4 Private MD: Diagnosis: Chest pain, unspecified;Essential (primary) hypertension;Angina pectoris, unspecified Presentation: 01/20 00:58 Chief complaint: Patient states: chest pain and SOB starting around 2300. Coronavirus lg3 screen: Client denies travel out of the [place] in the last 14 days. At this time, the client does not indicate any symptoms associated with coronavirus-19. Ebola Screen: No symptoms or risks identified at this time. Initial Sepsis Screen: Does the patient meet any 2 criteria? No. Patient's initial sepsis screen is negative. Does the patient have a suspected source of infection? No. Patient's initial sepsis screen is negative. Risk Assessment: Do you want to hurt yourself or someone else? Patient reports no desire to harm self or others. Onset of symptoms was January 19, 2023. 00:58 Method Of Arrival: Ambulatory lg3 00:58 Acuity: CHAPIS 3 lg3 Triage Assessment: 01:00 General: Appears in no apparent distress. uncomfortable, Behavior is calm, cooperative. lg3 Pain: Complains of pain in chest. EENT: No deficits noted. No signs and/or symptoms were reported regarding the EENT system. Neuro: No deficits noted. Rudd Agitation-Sedation Scale (RASS): 0 - Alert and Calm Level of Consciousness is awake, alert, obeys commands, Oriented to person, place, time, situation. Cardiovascular: Reports chest pain, shortness of breath. Respiratory: No deficits noted. Airway is patent Respiratory effort is even, unlabored, Respiratory pattern is regular, symmetrical. GI: No deficits noted. No signs and/or symptoms were reported involving the gastrointestinal system. : No deficits noted. No signs and/or symptoms were reported regarding the genitourinary system. Derm: No deficits noted. No signs and/or symptoms reported regarding the dermatologic system. Musculoskeletal: No deficits noted. No signs and/or symptoms reported regarding the musculoskeletal system. Circulation, motion, and sensation intact. Range of motion: intact in all extremities. Historical: - Allergies: 01:00 Demerol; lg3 - Home Meds: 01:00 Depakote Oral [Active]; lg3 - PMHx: 01:00 Hypertensive disorder; PTSD; MO; lg3 - PSHx: 01:00 back; Bora Knee replacement; lg3 - Immunization history:: Adult Immunizations up to date, Client reports receiving the 1st dose of the Covid vaccine. - Social history:: Smoking status: Patient denies any tobacco usage or history of. Patient/guardian denies using alcohol, street drugs. Screenin:08 [facility] ED Fall Risk Assessment (Adult) History of falling in the last 3 months, rv including since admission No falls in past 3 months (0 pts) Confusion or Disorientation No (0 pts) Intoxicated or Sedated No (0 pts) Impaired Gait No (0 pts) Mobility Assist Device Used No (0 pt) Altered Elimination No (0 pt) Score/Fall Risk Level 0 - 2 = Low Risk Oriented to surroundings, Maintained a safe environment, Educated pt \T\ family on fall prevention, incl call for assistance when getting out of bed, Assessed \T\ reinforced patient's understanding of fall precautions, Provided non-skid footwear, Hourly rounding (assess needs \T\ fall precautionary measures) done, Used ambulatory aids as needed (educated on \T\ assisted with), Used gait belt as appropriate. Abuse screen: Denies threats or abuse. Denies injuries from another. Nutritional screening: No deficits noted. Tuberculosis screening: No symptoms or risk factors identified. Assessment: 01:08 General: Appears uncomfortable, Behavior is calm, cooperative. Pain: Complains of pain rv in chest Pain does not radiate. Pain began suddenly. Neuro: Level of Consciousness is awake, alert, obeys commands, Oriented to person, place, time, situation. Cardiovascular: Rhythm is regular. Respiratory: Airway is patent Respiratory effort is even, unlabored. Vital Signs: 00:58 BP 143 / 78; Pulse 68; Resp 17 S; Temp 98.3(O); Pulse Ox 97% on R/A; Weight 93.89 kg 3 (R); Height 6 ft. 1 in. (R); 00:58 Body Mass Index 27.31 (93.89 kg, 185.42 cm) 3 ED Course: 00:56 Patient arrived in ED. ag3 01:00 Triage completed. lg3 01:00 Arm band placed on right wrist. lg3 01:06 Bismark Arredondo MD is Attending Physician. dwayne 01:08 Inserted saline lock: 20 gauge in right forearm, using aseptic technique. Blood rv collected. 01:09 Patient has correct armband on for positive identification. Placed in gown. Bed in low rv position. Call light in reach. Side rails up X 1. Client placed on continuous cardiac and pulse oximetry monitoring. NIBP monitoring applied. compliance monitor on. 01:09 Patient maintains SpO2 saturation greater than 95% on room air. rv 01:12 Edy Ureña, RN is Primary Nurse. rv 01:36 Anton Bartlett is Hospitalizing Provider. dwayne 01:39 XRAY Chest (1 view) In Process Unspecified. EDMS 02:28 No provider procedures requiring assistance completed. Patient admitted, IV remains in rv place. Administered Medications: 02:24 Drug: Aspirin PO Chewable Tablet 162 mg Route: PO; lg3 02:30 Follow up: Response: No adverse reaction rv 02:24 Drug: Enoxaparin Sub-Q 1 mg/kg Route: Sub-Q; Site: abdomen; lg3 02:30 Follow up: Response: No adverse reaction rv 02:24 Drug: Metoprolol PO 50 mg Route: PO; lg3 02:30 Follow up: Response: No adverse reaction rv 02:24 Drug: Famotidine IVP 20 mg Route: IVP; Site: right antecubital; lg3 02:30 Follow up: Response: No adverse reaction rv Medication: 01:08 VIS not applicable for this client. rv Outcome: 01:37 Decision to Hospitalize by Provider. dwayne 02:29 Admitted to Med/surg accompanied by tech, via wheelchair, room 214, with chart, Report rv called to 02:29 Condition: good 02:29 Instructed on the need for admit. 02:30 Patient left the ED. rv Signatures: Dispatcher [employer] EDMT Bismark Arredondo MD MD cha Vicente, Ronaldo, RN RN rv Becca Olivera 3 Jaz Rice RN RN lg3
--- NOTE | 2023-01-20 01:38 | EDPHYS ---
Physician Documentation [facility] Name: Davis Kramer Age: 67 yrs Sex: Male : 1955 Arrival Date: 01/20/2023 Time: 00:40 Bed 4 Private MD: ED Physician Bismark Arredondo HPI: 01/20 01:31 This 67 yrs old Male presents to ER via Ambulatory with complaints of Chest dwayne Pain. 01:31 The patient or guardian reports chest pain that is located primarily in the substernal dwayne area. Onset: 3 day(s) ago. The pain does not radiate. Associated signs and symptoms: Pertinent positives: shortness of breath. The chest pain is described as a pressure. Duration: The patient or guardian reports multiple episodes, with no pattern. Severity of pain: At its worst the pain was moderate in the emergency department the pain has resolved and did so just prior to arrival. The patient has experienced similar episodes in the past, several times. Historical: - Allergies: 01:00 Demerol; lg3 - Home Meds: 01:00 Depakote Oral [Active]; lg3 - PMHx: 01:00 Hypertensive disorder; PTSD; PR; lg3 - PSHx: 01:00 back; Bora Knee replacement; lg3 - Immunization history:: Adult Immunizations up to date, Client reports receiving the 1st dose of the Covid vaccine. - Social history:: Smoking status: Patient denies any tobacco usage or history of. Patient/guardian denies using alcohol, street drugs. ROS: 01:33 Constitutional: Negative for fever, chills, and weight loss, Eyes: Negative for injury, dwayne pain, redness, and discharge, ENT: Negative for injury, pain, and discharge, Neck: Negative for injury, pain, and swelling, Respiratory: Negative for shortness of breath, cough, wheezing, and pleuritic chest pain, Abdomen/GI: Negative for abdominal pain, nausea, vomiting, diarrhea, and constipation, Back: Negative for injury and pain, : Negative for injury, bleeding, discharge, and swelling, MS/Extremity: Negative for injury and deformity, Skin: Negative for injury, rash, and discoloration, Neuro: Negative for headache, weakness, numbness, tingling, and seizure, Psych: Negative for depression, anxiety, suicide ideation, homicidal ideation, and hallucinations, Allergy/Immunology: Negative for hives, rash, and allergies, Endocrine: Negative for neck swelling, polydipsia, polyuria, polyphagia, and marked weight changes, Hematologic/Lymphatic: Negative for swollen nodes, abnormal bleeding, and unusual bruising. :33 Cardiovascular: Positive for chest pain. Exam: :33 Constitutional: This is a well developed, well nourished patient who is awake, alert, dwayne and in no acute distress. Head/Face: Normocephalic, atraumatic. Eyes: Pupils equal round and reactive to light, extra-ocular motions intact. Lids and lashes normal. Conjunctiva and sclera are non-icteric and not injected. Cornea within normal limits. Periorbital areas with no swelling, redness, or edema. ENT: Nares patent. No nasal discharge, no septal abnormalities noted. Tympanic membranes are normal and external auditory canals are clear. Oropharynx with no redness, swelling, or masses, exudates, or evidence of obstruction, uvula midline. Mucous membranes moist. Neck: Trachea midline, no thyromegaly or masses palpated, and no cervical lymphadenopathy. Supple, full range of motion without nuchal rigidity, or vertebral point tenderness. No Meningismus. Chest/axilla: Normal chest wall appearance and motion. Nontender with no deformity. No lesions are appreciated. Cardiovascular: Regular rate and rhythm with a normal S1 and S2. No gallops, murmurs, or rubs. Normal PMI, no JVD. No pulse deficits. Respiratory: Lungs have equal breath sounds bilaterally, clear to auscultation and percussion. No rales, rhonchi or wheezes noted. No increased work of breathing, no retractions or nasal flaring. Abdomen/GI: Soft, non-tender, with normal bowel sounds. No distension or tympany. No guarding or rebound. No evidence of tenderness throughout. Back: No spinal tenderness. No costovertebral tenderness. Full range of motion. Male : Normal genitalia with no discharge or lesions. Skin: Warm, dry with normal turgor. Normal color with no rashes, no lesions, and no evidence of cellulitis. MS/ Extremity: Pulses equal, no cyanosis. Neurovascular intact. Full, normal range of motion. Neuro: Awake and alert, GCS 15, oriented to person, place, time, and situation. Cranial nerves II-XII grossly intact. Motor strength 5/5 in all extremities. Sensory grossly intact. Cerebellar exam normal. Normal gait. Psych: Awake, alert, with orientation to person, place and time. Behavior, mood, and affect are within normal limits. 01:33 ECG was reviewed by the Attending Physician. Vital Signs: 00:58 BP 143 / 78; Pulse 68; Resp 17 S; Temp 98.3(O); Pulse Ox 97% on R/A; Weight 93.89 kg lg3 (R); Height 6 ft. 1 in. (R); 00:58 Body Mass Index 27.31 (93.89 kg, 185.42 cm) lg3 MDM: 01:07 Patient medically screened. dwayne 01:34 Differential diagnosis: abnormal EKG, acute myocardial infarction, acute pericarditis, dwayne anxiety, coronary artery disease chest wall pain, congestive heart failure Cholelithiasis costochondritis, esophagitis, gastritis, hiatal hernia, pancreatitis, peptic ulcer disease, pleurisy, pneumonia, pulmonary embolus, stable angina, thoracic aortic disection, unstable angina. HEART Score: History: Moderately Suspicious (1), ECG: Non specific repolarization disturbance / LBTB / PM (1), Age: > or = 65 years (2), Risk Factors: > or = 3 Risk factors for atherosclerotic disease (2), [Hypercholesterolemia] [Hypertension] [+ Family HX] Troponin: < or = 1 x Normal Limit (0). The patient was given aspirin in the Emergency Department. URVSAHI Risk Score: 1 - patient's age is greater or equal to 65 years, 1 - Three or more CAD risk factors, TOTAL SCORE = 2. Data reviewed: vital signs, nurses notes, lab test result(s), EKG, radiologic studies, plain films. Consideration of Admission/Observation Patient was admitted/placed on observation. Escalation of care including admission/observation considered. Test considered but Not performed: CT: CT CHEST RO PE. Care significantly affected by the following chronic conditions: Hypertension, Obesity, CAD, PR. 01/20 01:11 Order name: Basic Metabolic Panel [facility] 01/20 01:11 Order name: CBC with Diff [facility] 01/20 01:11 Order name: Troponin HS [facility] 01/20 01:46 Order name: NT PRO-BNP [facility] 01/20 01:46 Order name: Magnesium EDMS 01/20 01:11 Order name: XRAY Chest (1 view) jb4 01/20 01:11 Order name: EKG; Complete Time: 01:12 jb4 01/20 01:08 Order name: Cardiac monitoring; Complete Time: 01: rv 01/20 01:08 Order name: EKG - Nurse/Tech; Complete Time: 01:08 rv 01/20 01:08 Order name: IV Saline Lock; Complete Time: : rv 01/20 01:08 Order name: Labs collected and sent; Complete Time: 01: rv 01/20 01:08 Order name: O2 Per Protocol; Complete Time: : rv 01/20 01:08 Order name: O2 Sat Monitoring; Complete Time: : rv EC:33 Rate is 66 beats/min. Rhythm is regular. QRS [place] is Normal. TN interval is normal. QRS dwayne interval is normal. QT interval is normal. No Q waves. T waves are Normal. No ST changes noted. Clinical impression: NSR w/ Non-specific ST/T Changes and No evidence of ischemia. Interpreted by me. Reviewed by me. Administered Medications: 02:24 Drug: Aspirin PO Chewable Tablet 162 mg Route: PO; lg3 02:30 Follow up: Response: No adverse reaction rv 02:24 Drug: Enoxaparin Sub-Q 1 mg/kg Route: Sub-Q; Site: abdomen; lg3 02:30 Follow up: Response: No adverse reaction rv 02:24 Drug: Metoprolol PO 50 mg Route: PO; lg3 02:30 Follow up: Response: No adverse reaction rv 02:24 Drug: Famotidine IVP 20 mg Route: IVP; Site: right antecubital; lg3 02:30 Follow up: Response: No adverse reaction rv Disposition Summary: 01/20/23 01:37 Hospitalization Ordered Hospitalization Status: Observation dwayne Provider: Anton Bartlett cha Location: Telemetry/MedSurg (observation) dwayne Condition: Stable dwayne Problem: new dwayne Symptoms: have improved dwayne Bed/Room Type: Standard dwayne Room Assignment: 214(01/20/23 02:04) mw Diagnosis - Chest pain, unspecified dwayne - Essential (primary) hypertension dwayne - Angina pectoris, unspecified dwayne Forms: - Medication Reconciliation Form dwayne - SBAR form dwayne Signatures: Dispatcher [employer] EDMS Bev Jung RN RN mw Anderson, Corey, MD MD cha Vicente, Ronaldo RN Jaz Morse RN RN lg3 Corrections: (The following items were deleted from the chart) 01:45 01:31 PROBNP+C.LAB.BRZ ordered. EDMS EDMS 01:45 01:31 MAGNESIUM+C.LAB.BRZ ordered. EDMS EDMS 02:04 01:37 dwayne grady
[2023-01-20 01:42] LABS: Potassium 3.6 mEq/L (3.5-5.1); Troponin High Sensitivity 7.4 pg/mL (<58.9)
[2023-01-20 01:57] LABS: Magnesium 1.8 mg/dL (1.6-2.4)
--- NOTE | 2023-01-20 02:04 | P.HP ---
Certification for Inpatient Patient admitted to: Observation With expected LOS: <2 Midnights Patient will require the following post-hospital care: None Practitioner: I am a practitioner with admitting privileges, knowledge of patient current condition, hospital course, and medical plan of care. Services: Services provided to patient in accordance with Admission requirements found in Title 42 Section 412.3 of the Code of Federal Regulations Patient History Date of Service: 01/20/23 Reason for admission: Chest Pain History of Present Illness: Mr. Kramer is a 67 year old male with past medical history of hypertension, PTSD, non-insulin dependent type 2 diabetes, hypothyroidism, and coronary artery disease who presented to the ED with complaints of chest pain. He states that he has been experiencing on and off for about 3 days now, but it worsened just LAPEL B[employer]ER. States felt like someone was sitting on his chest and was associated with shortness of breath and nausea/vomiting. EKG showed NSR. Labs within normal limits, including troponin. In the emergency department, he received aspirin, metoprolol, and therapeutic lovenox. He reports his chest pain has improved but is still lingering. Vital signs have been stable. ED provider wishes to admit patient for further management. Allergies meperidine [From Demerol] Allergy (Mild, Verified 02/01/22 04:22) Nausea/Vomiting Home medications list reviewed: Yes Home Medications: Acetaminophen 650 mg PO BIDP PRN 02/01/22 ARIPiprazole [Aripiprazole] 10 mg PO DAILY #30 tab 06/09/22 Aspirin 81 mg PO DAILY #30 tab.chew 06/09/22 Atorvastatin Calcium [Lipitor] 80 mg PO BEDTIME #30 tab 06/09/22 Divalproex Sodium [Divalproex Sodium ER] 1,000 mg PO BID #60 tab 06/09/22 Gabapentin 900 mg PO BID #180 cap 06/09/22 Levothyroxine Sodium 25 mcg PO DAILY #30 tab 06/09/22 Omeprazole 20 mg PO DAILY #30 tab 06/09/22 Sertraline HCl 200 mg PO DAILY #30 tab 06/09/22 lisinopriL [Lisinopril] 10 mg PO DAILY #30 tab 06/09/22 - Past Medical/Surgical History Diabetic: Yes -: Type 2 Diabetes, Non-Insulin Dependent -: Hypertension -: Seizure Disorder -: PTSD -: Hypothyroidism -: Bilateral Knee Replacement Psychosocial/ Personal History: Patient is a . He lives at home with his . - Family History Family History: Reviewed- Non-Contributory - Social History Smoking Status: Never smoker Alcohol use: Yes CD- Drugs: No Caffeine use: Yes Place of Residence: Home Review of Systems Respiratory: Shortness of Breath Cardiovascular: Chest Pain Gastrointestinal: Nausea, Vomiting Physical Examination - Vital Signs Temperature: 98.3 F Blood Pressure: 143/78 Pulse: 68 Respirations: 17 Pulse Ox (%): 97 - Physical Exam General: Alert, In no apparent distress HEENT: Atraumatic, EOMI, Sclerae nonicteric Neck: Supple, 2+ carotid pulse no bruit Respiratory: Clear to auscultation bilaterally, Normal air movement Cardiovascular: Regular rate/rhythm, Normal S1 S2 Gastrointestinal: Normal bowel sounds, No tenderness Musculoskeletal: No tenderness Integumentary: No rashes Neurological: Normal speech, Normal affect - Studies Laboratory Data (last 24 hrs) 01/20/23 01:31: Magnesium Cancelled 01/20/23 01:00: WBC 6.90, Hgb 14.4, Hct 42.7, Plt Count 251 01/20/23 01:00: Sodium 137, Potassium 3.6, BUN 17, Creatinine 0.98, Glucose 138 H, Magnesium 1.8 Assessment and Plan - Problems (Diagnosis) (1) Coronary artery disease Current Visit: Yes Status: Acute Qualifiers: Coronary Disease-Associated Artery/Lesion type: [place] artery [place] vs. transplanted heart: [place] heart Associated angina: with unstable angina Qualified Code(s): I25.110 - Atherosclerotic heart disease of [place] coronary artery with unstable angina pectoris (2) Hypertension Current Visit: Yes Status: Chronic Qualifiers: Hypertension type: primary hypertension Qualified Code(s): I10 - Essential (primary) hypertension (3) Type 2 diabetes mellitus Current Visit: Yes Status: Chronic Qualifiers: Diabetes mellitus terminal operations manager insulin use: without terminal operations manager use Diabetes mellitus complication status: with hyperglycemia Qualified Code(s): E11.65 - Type 2 diabetes mellitus with hyperglycemia (4) Hypothyroidism Current Visit: Yes Status: Chronic Qualifiers: Hypothyroidism type: acquired Qualified Code(s): E03.9 - Hypothyroidism, unspecified - Plan Patient is admitted for observation for ACS rule out. Consult cardiology. Monitor on telemetry. Trend troponin. Initial negative. Aspirin and atorvastatin daily. Check lipid panel, TSH, A1c. Last admission for chest pain in May 2022- Nuclear stress test was performed which was negative for stress-induced ischemia but reported large fixed defect along the inferior wall. He has not followed up with cardiology since. Monitor and replete electrolytes per protocol. Reconcile continue home medications. Lovenox for VTE prophylaxis. Full code. Discharge Plan: Home Plan to discharge in: 24 Hours - Advance Directives Does patient have a Living Will: No Does patient have a Durable POA for Healthcare: No - Code Status/Comfort Care Code Status Assessed: Yes Code Status: Full Code Physician Review: Patient Assessed, Agree with Above Assessment and Plan Critical Care: No Time Spent Managing Pts Care (In Minutes): 50
[2023-01-20] MEDS ORDERED: METOPROLOL TAR 50 MG TAB ONE (02:15)
[2023-01-20] MEDS ORDERED: ASPIRIN 81 MG CHEWABLE TABLET ONE (02:15)
[2023-01-20] MEDS ORDERED: ENOXAPARIN 100 MG/ML SYR SQ ONE (02:16)
[2023-01-20] MEDS ORDERED: FAMOTIDINE 20 MG/2 ML VIAL IV ONE (02:16)
[2023-01-20 02:48] VITALS: O2SAT 97
[2023-01-20] MEDS ORDERED: ONDANSETRON 4 MG/2 ML VIAL IV PRN (02:51)
[2023-01-20] MEDS ORDERED: ACETAMINOPHEN 500 MG TAB PO PRN (02:51)
[2023-01-20 03:18] VITALS: BMI 27.3
[2023-01-20 06:13] LABS: Thyroid Stimulating Hormone 2.65 uIU/mL (0.358-3.740); Troponin High Sensitivity 7.5 pg/mL (<58.9)
[2023-01-20 07:32] LABS: Phosphorus 4.6 mg/dL (2.5-4.9); Potassium 3.7 mEq/L (3.5-5.1)
[2023-01-20] MEDS ORDERED: POTASSIUM CL SA 10 MEQ TAB PO ONE (08:05)
[2023-01-20] MEDS ORDERED: ENOXAPARIN 40 MG/0.4 ML SQ SCH (09:00)
[2023-01-20] MEDS ORDERED: ASPIRIN EC 81 MG TAB PO SCH (09:00)
[2023-01-20] MEDS ORDERED: REGADENOSON 0.4 MG/5 ML SYR IV ONE (09:50)
--- NOTE | 2023-01-20 13:42 | RAD REPORT ---
EXAM DESCRIPTION: RAD - Chest Single View - 01/20/2023 1:37 am CLINICAL HISTORY: 67 years Male CHEST PAIN COMPARISON: Chest x-ray 11/14/2022 FINDINGS: Lung volumes adequate. Cardiac silhouette is normal in size. No pneumothorax. No large pleural effusion. No focal consolidation. No acute bony finding. IMPRESSION: No acute cardiopulmonary findings. Electronically signed by: Sarai Blevins MD 01/20/2023 1:53 AM CDT Due to temporary technical issues with the PACS/Fluency reporting system, reports are being signed by the in house radiologist without review as a courtesy to ensure prompt reporting. The interpreting r adiologist is fully responsible for the content of the report.
--- NOTE | 2023-01-20 13:46 | EKG ---
Test Date: 2023-01-20 Test Time: 01:09:02 Millinery Department Manager: ALEKS MEASUREMENT RESULTS: Intervals: Rate: 66 [place]: 186 QRSD: 88 QT: 406 QTc: 425 [place]: P: 53 [place]: 186 QRS: 4 T: 35 INTERPRETIVE STATEMENTS: Sinus rhythm with premature atrial complexes Otherwise normal ECG Compared to ECG 11/15/2022 00:36:40 Atrial premature complex(es) now present Electronically Signed On 01-20-23 13:44:53 CDT by Austin Villatoro
--- NOTE | 2023-01-20 15:03 | RAD REPORT ---
EXAM DESCRIPTION: NM - Rest Stress Cardiac Imaging - 01/20/2023 2:03 pm CLINICAL HISTORY: CP COMPARISON: Rest Stress Cardiac Imaging dated 06/09/2022 TECHNIQUE: The patient was administered approximately 9.8 mCi of Tc 99m Sestamibi prior to resting S PECT imaging of the heart. The patient was then administered approximately 30.3 mCi of Tc 99m Sestami bi following exercise or pharmacologic stress. Multiplanar SPECT images were reviewed. FINDINGS: No stress induced ischemic defect is seen to suggest stress induced ischemia. Large fixed defect involving the inferior wall basal and mid segments, partially extending towards the apical seg ment, stable in extent, although more conspicuous on today's exam compared to the prior study. This a gain favors sequelae of prior infarct. Hypokinesia along the inferior wall is more evident than on prior exam. The end diastolic volume is 95 ml, the end systolic volume is 46 ml, and the ejection fraction is 52 %. IMPRESSION: No evidence of stress-induced myocardial ischemia. Stable extent of large fixed defect of the inferior wall as above, more conspicuous on today's exam. This again favors sequelae of prior infarct. Hypokinesia in the involved region. Left ventricular ejection fraction slightly reduced compared to the prior exam, 52%, near the lower l imit of normal.
[2023-01-20 16:33] VITALS: BP 123/71; TEMP 97.7
--- NOTE | 2023-01-20 17:37 | P.DS ---
Admission Date: 01/20/23 Discharge Date: 01/20/23 Disposition: ROUTINE DISCHARGE Discharge Condition: FAIR Reason for Admission: Chest Pain - Problems (1) Coronary artery disease Current Visit: Yes Status: Acute Qualifiers: Coronary Disease-Associated Artery/Lesion type: [place] artery [place] vs. transplanted heart: [place] heart Associated angina: with unstable angina Qualified Code(s): I25.110 - Atherosclerotic heart disease of [place] coronary artery with unstable angina pectoris (2) Hypertension Current Visit: Yes Status: Chronic Qualifiers: Hypertension type: primary hypertension Qualified Code(s): I10 - Essential (primary) hypertension (3) Type 2 diabetes mellitus Current Visit: Yes Status: Chronic Qualifiers: Diabetes mellitus shelter insulin use: without shelter use Diabetes mellitus complication status: with hyperglycemia Qualified Code(s): E11.65 - Type 2 diabetes mellitus with hyperglycemia (4) Chest pain Current Visit: No Status: Acute Qualifiers: Chest pain type: unspecified Qualified Code(s): R07.9 - Chest pain, unspecified Brief History of Present Illness: Mr. Kramer is a 67 year old male with past medical history of hypertension, PTSD, non-insulin dependent type 2 diabetes, hypothyroidism, and coronary artery disease who presented to the ED with complaints of chest pain. 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 States felt like someone was sitting on his chest and was associated with shortness of breath and nausea/vomiting. EKG showed NSR. Labs within normal limits, including troponin. In the emergency department, he received aspirin, metoprolol, and therapeutic lovenox. He reported his chest pain has improved but is still lingering. Vital signs stable. Patient admitted for further management. Hospital Course: Patient placed under observation on the medical floor. Troponin trended negative. Patient seen by cardiology and nuclear stress test done which showed no stress induced ischemia. Patient was asymptomatic during the hospital stay. ACS ruled out. Patient is deemed stable for discharge per cardiology. Vital Signs/Physical Exam: Temp Pulse Resp BP Pulse Ox 97.7 F 64 16 123/71 97 01/20/23 16:00 01/20/23 16:00 01/20/23 16:00 01/20/23 16:00 01/20/23 16:00 General: Alert, In no apparent distress, Oriented x3 HEENT: Mucous membr. moist/pink Neck: Supple, JVD not distended Respiratory: Clear to auscultation bilaterally, Normal air movement Cardiovascular: No edema, Regular rate/rhythm, Normal S1 S2 Gastrointestinal: Soft and benign, Non-distended Musculoskeletal: No swelling Integumentary: No rashes, No cyanosis Neurological: Normal strength at 5/5 x4 extr Laboratory Data at Discharge: WBC 6.90 thou/uL (4.3-10.9) 01/20/23 01:00 Hgb 14.4 g/dL (13.6-17.9) 01/20/23 01:00 Hct 42.7 % (39.6-49.0) 01/20/23 01:00 Plt Count 251 thou/uL (152-406) 01/20/23 01:00 Sodium 139 mEq/L (136-145) 01/20/23 05:39 Potassium 3.7 mEq/L (3.5-5.1) 01/20/23 05:39 BUN 16 mg/dL (7-18) 01/20/23 05:39 Creatinine 0.79 mg/dL (0.70-1.30) 01/20/23 05:39 Glucose 135 mg/dL (74-106) H 01/20/23 05:39 Phosphorus 4.6 mg/dL (2.5-4.9) 01/20/23 05:39 Magnesium 2.0 mg/dL (1.6-2.4) 01/20/23 05:39 Triglycerides 246 mg/dL (<150) H 01/20/23 05:39 Cholesterol 187 mg/dL (<200) 01/20/23 05:39 HDL Cholesterol 45 mg/dL (40-60) 01/20/23 05:39 Cholesterol/HDL Ratio 4.16 01/20/23 05:39 Home Medications: Acetaminophen 650 mg PO BIDP PRN 02/01/22 ARIPiprazole [Aripiprazole] 10 mg PO DAILY #30 tab 06/09/22 Aspirin 81 mg PO DAILY #30 tab.chew 06/09/22 Atorvastatin Calcium [Lipitor] 80 mg PO BEDTIME #30 tab 06/09/22 Divalproex Sodium [Divalproex Sodium ER] 1,000 mg PO BID #60 tab 06/09/22 Gabapentin 900 mg PO BID #180 cap 06/09/22 Levothyroxine Sodium 25 mcg PO DAILY #30 tab 06/09/22 Omeprazole 20 mg PO DAILY #30 tab 06/09/22 Sertraline HCl 200 mg PO DAILY #30 tab 06/09/22 lisinopriL [Lisinopril] 10 mg PO DAILY #30 tab 06/09/22 Diet: ADA Activity: Ad celestina Followup: Unknown,U [Primary Care Provider] - 1-2 Weeks Time spent managing pt's care (in minutes): 28
[2023-01-20] MEDS ORDERED: ATORVASTATIN 40 MG TAB PO SCH (21:00)
--- NOTE | 2023-01-21 12:08 | CON ---
Date of Consultation: 01/20/2023 Admitted with atypical chest pain to Dr. Bartlett. Admitted on 01/20/2023. The patient seen on 2022. Chest pain was atypical, sharp, stabbing. No radiation. Nonexertional. No associated sympto ms. MA ruled out. EKG is normal. Chest x-ray is unremarkable. Past Medical History: Includes dyslipidemia, neuropathy, hypertension, diabetes, and hypothyroidism. Allergies: INCLUDE DEMEROL. Review of Systems: Negative. Social History: Negative. Family History: Negative. Physical Examination: Done by Dr. Bartlett and was within normal limit. Most information was obtained from the chart as the patient had a very difficult time waking up and he would respond questions and go back to sleep. Diagnostic Data: Normal. Impression And Plan: Atypical chest pain in a patient with many risk factors for heart disease inclu ding diabetes, hypertension, dyslipidemia, his age and gender. Lexiscan is pending. We will see what that shows before making fu rther decisions. ADITHYA/LASHANDA Voice ID: [id number] Report ID: [id number]
--- NOTE | 2023-01-23 07:52 | TREADPHA ---
DX: CHEST PAIN Date of Study: 01/20/2023 Ht: 6' 1 " Wt: 207 lb 0 oz Consulting Physician: SALINA MEDICATIONS: ASPIRIN, LIPITOR, LOVENOX HISTORY: 67 YEAR OLD MALE WITH COMPLIANTS OF CHEST PAIN. HISTORY OF HYPERTENSION, HYPERLIPIDEMIA, DIABETES MELLITUS TYPE 2, DENIES ALCOHOL, DRUG USE OR SMOKING. DENIES FAMILY HISTORY OF CORONARY ARTERY DISEASE OR PREVIOUS HEART SURGERIES. PHYSICIAL EXAMINATION: RESTING B.P.: 133/76 RESTING H.R.: 58 RESTING EKG: NORMAL SINUS RHYTHM, WITHIN NORMAL LIMITS PROTOCOL: PHARMACOLOGIC EXERCISE TIME: 3:30 B.P. AT PEAK STRESS: 134/83 IMPRESSION: LEXISCAN INJECTED, CARDIOLITE GIVEN PER PROTOCOL. SEE NUCLEAR MEDICINE REPORT. COMPLAINTS OF SHORTNESS OF BREATH. DENIES CHEST PAIN. NO SUPRAVENTRICULAR VENTRICULAR TACHYCARDIA OR PREMATURE VENTRICULAR COMPLEXES NOTED. OCCASIONAL PREMATURE ARTRIAL COMPLEXES NOTED IN RECOVERY. NO ELECTROCARDIOGRAM CHANGES OF ISCHEMIA WITH LEXISCAN.
== END 2023-01-20 18:15 | disposition home or self-care (01) ==
LOC: ER 00:40 → ERHOLD 02:22 → 2ND 02:33
PROVIDERS: ADMIT Internal Medicine; ATTEND Internal Medicine
DX: R07.9 Chest pain, unspecified (principal); I25.10 Atherosclerotic heart disease of native coronary artery without angina pectoris; I10 Essential (primary) hypertension; F43.10 Post-traumatic stress disorder, unspecified; E11.9 Type 2 diabetes mellitus without complications; E03.9 Hypothyroidism, unspecified; Z88.6 Allergy status to analgesic agent
CPT/HCPCS: 93005; 93017; 85025; 80048 ×2; 36415; 83735 ×2; 84100; 80061; 84443; 83036; 84484 ×3; 83880; 71045; 78452; 96372; 96374; 99285; J1650 ×2; J2785; A9500; G0378 ×2

== ENCOUNTER 2023-02-19 19:23 | Emergency (ER) | payer MEDICARE, OTHER ==
--- OUTSIDE RECORDS SUMMARY | 2023-02-19 19:31 | XMS REPORT | Continuity of Care Document ---
:1955 Author Organization [facility] t Address [address] [place] [address] Care Team Providers Name Role Phone Adelina Rios Attending Clinician Adam Daniel Attending Clinician Irasema Abreu Attending Clinician GAY_S Attending Clinician Unavailable OWENS_T Attending Clinician Unavailable GAYLORD_S Admitting Clinician Unavailable OWENS_T Admitting Clinician Unavailable Payers Payer Name Policy Type Policy Number Effective Date Expiration Date [facility] [id number] 2020 (MEDICARE 00:00:00 REPLACEMENT HMO) Problems This patient has no known problems. Allergies, Adverse Reactions, Alerts This patient has no known allergies or adverse reactions. Medications This patient has no known medications. Procedures This patient has no known procedures. Encounters Start End Encounter Admission Attending Care Care Encounter Source Date/Time Date/Time Type Type Clinicians Facility Department ID 2023-01-24 2023-01-24 SHOA[facility] Visit Adelina [id number]. 2.16.840.1. CL [id number] [facility] 18:30:00 19:30:00 Blanca [id number] [id number] 2022-09-19 2022-09-19 CAV Adam 2.16.840. 2.16.840.1. CLAC [id number] [facility] 14:30:00 15:30:00 María [id number] [id number] 2022-06-15 2022-06-15 GLADYS Villalpando 2.16.840. 2.16.840.1. CLAC [id number] [facility] 15:30:00 16:30:00 Brady [id number]. [id number] [id number] 2022-06-15 2022-06-15 Outpatient GAYLORD_S DMG DMG [id number] -2022 [facility] 00:00:00 00:00:00 0506 [facility] 2022-05-20 2022-05-20 Outpatient GAYLORD_S DMG DMG [id number] -2021 [facility] 00:00:00 00:00:00 0930 [facility] 2022-03-04 2022-03-04 Outpatient GAYLORD_S DMG DMG [id number] -2021 [facility] 03:28:00 03:28:00 0715 Med[facility] l Group 2021-12-10 2021-12-10 Outpatient GAYLORD_S DMG DMG [id number] -2021 [facility] 12:01:00 12:01:00 0422 Med[facility] l Group 2021-09-28 2021-09-28 Outpatient GAYLORD_S DMG DMG [id number] -2021 [facility] 08:00:00 08:00:00 0208 [facility] l [facility] 2021-09-23 2021-09-23 Outpatient GAYLORD_S DMG DMG [id number] -2021 [facility] 07:33:00 07:33:00 0203 Med[facility] l [facility] 2020-12-16 2020-12-16 Outpatient OWENS_T DMG DMG [id number] [facility] 04:25:00 04:25:00 0428 Med[facility] l Group 2020-11-21 2020-11-21 Outpatient DMG DMG [id number] [facility] 06:02:00 06:02:00 0403 [facility] l [facility] Results This patient has no known results.
[2023-02-19] MEDS ORDERED: LIDOCAINE 1% MPF 30 ML VIAL ONE ×2 (19:53→20:03)
[2023-02-19] MEDS ORDERED: CEFEPIME 2 GM VIAL ONE (20:00)
[2023-02-19] MEDS ORDERED: AMOX/K CLAV 875 MG TAB ONE (20:00)
[2023-02-19] MEDS ORDERED: TETANUS & DIPHTHERIA TOX,ADULT 0.5 ML VIAL ONE (20:02)
[2023-02-19] MEDS ORDERED: ONDANSETRON 4 MG/2 ML VIAL ONE ×2 (20:02→22:47)
[2023-02-19] MEDS ORDERED: NA CHLORIDE 0.9% 500 ML ONE (20:02)
[2023-02-19] MEDS ORDERED: NA CHLORIDE 0.9% 100 ML ONE ×2 (20:02→20:04)
[2023-02-19] MEDS ORDERED: FENTANYL CITR 100 MCG/2 ML ONE ×2 (20:02→22:47)
[2023-02-19] MEDS ORDERED: CEFAZOLIN SODIUM 1 GM/VIAL ONE (20:04)
--- NOTE | 2023-02-19 20:54 | RAD REPORT ---
EXAM DESCRIPTION: RAD - Hand Right 3 View - 02/19/2023 8:36 pm CLINICAL HISTORY: Right hand pain status post injury FINDINGS: Dog bite dorsal aspect of hand. Horizontal lucency within the base of the first metacarpal probably not significant. Nondisplaced fra cture is considered less likely and should be correlated clinically. 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 Vascular calcifications Joint space narrowing second and third MCP
--- NOTE | 2023-02-19 21:37 | EDPHYS ---
Physician Documentation [facility] Name: Davis Kramer Age: 67 yrs Sex: Male : 1955 Arrival Date: 02/19/2023 Time: 19:23 Bed 4 Private MD: ED Physician Bismark Arredondo HPI: 02/19 21:25 This 67 yrs old Male presents to ER via Ambulatory with complaints of DOG dwayne BITE. 21:25 The patient or guardian reports a laceration, complex, 7.5 cm(s), pain. The complaints dwayne affect the right hand diffusely. Context: The problem was sustained at home, resulted from dog bite. Onset: The symptoms/episode began/occurred just prior to arrival. Modifying factors: The symptoms are alleviated by nothing. Associated signs and symptoms: The patient has no apparent associated signs or symptoms. Severity of symptoms: At their worst the symptoms were mild, in the emergency department the symptoms are unchanged. The patient has not experienced similar symptoms in the past. Historical: - Allergies: 19:35 Demerol; kd3 19:35 Morphine; kd3 - PMHx: 19:35 Hypertensive disorder; CT; PTSD; kd3 - PSHx: 19:35 back; Bora Knee replacement; kd3 - Immunization history:: Adult Immunizations up to date. - Social history:: Smoking status: unknown. - Family history:: not pertinent. ROS: 21:25 Constitutional: Negative for fever, chills, and weight loss, Eyes: Negative for injury, dwayne pain, redness, and discharge, ENT: Negative for injury, pain, and discharge, Neck: Negative for injury, pain, and swelling, Cardiovascular: Negative for chest pain, palpitations, and edema, Respiratory: Negative for shortness of breath, cough, wheezing, and pleuritic chest pain, Abdomen/GI: Negative for abdominal pain, nausea, vomiting, diarrhea, and constipation, Back: Negative for injury and pain, : Negative for injury, bleeding, discharge, and swelling, Skin: Negative for injury, rash, and discoloration, Neuro: Negative for headache, weakness, numbness, tingling, and seizure, Psych: Negative for depression, anxiety, suicide ideation, homicidal ideation, and hallucinations, Allergy/Immunology: Negative for hives, rash, and allergies, Endocrine: Negative for neck swelling, polydipsia, polyuria, polyphagia, and marked weight changes, Hematologic/Lymphatic: Negative for swollen nodes, abnormal bleeding, and unusual bruising. 21:25 MS/extremity: Positive for laceration, pain, tenderness, of the right hand. Exam: 21:25 Constitutional: This is a well developed, well nourished patient who is awake, alert, dwayne and in no acute distress. Head/Face: Normocephalic, atraumatic. Eyes: Pupils equal round and reactive to light, extra-ocular motions intact. Lids and lashes normal. Conjunctiva and sclera are non-icteric and not injected. Cornea within normal limits. Periorbital areas with no swelling, redness, or edema. ENT: Nares patent. No nasal discharge, no septal abnormalities noted. Tympanic membranes are normal and external auditory canals are clear. Oropharynx with no redness, swelling, or masses, exudates, or evidence of obstruction, uvula midline. Mucous membranes moist. Neck: Trachea midline, no thyromegaly or masses palpated, and no cervical lymphadenopathy. Supple, full range of motion without nuchal rigidity, or vertebral point tenderness. No Meningismus. Chest/axilla: Normal chest wall appearance and motion. Nontender with no deformity. No lesions are appreciated. Cardiovascular: Regular rate and rhythm with a normal S1 and S2. No gallops, murmurs, or rubs. Normal PMI, no JVD. No pulse deficits. Respiratory: Lungs have equal breath sounds bilaterally, clear to auscultation and percussion. No rales, rhonchi or wheezes noted. No increased work of breathing, no retractions or nasal flaring. Abdomen/GI: Soft, non-tender, with normal bowel sounds. No distension or tympany. No guarding or rebound. No evidence of tenderness throughout. Back: No spinal tenderness. No costovertebral tenderness. Full range of motion. Male : Normal genitalia with no discharge or lesions. Skin: Warm, dry with normal turgor. Normal color with no rashes, no lesions, and no evidence of cellulitis. Neuro: Awake and alert, GCS 15, oriented to person, place, time, and situation. Cranial nerves II-XII grossly intact. Motor strength 5/5 in all extremities. Sensory grossly intact. Cerebellar exam normal. Normal gait. Psych: Awake, alert, with orientation to person, place and time. Behavior, mood, and affect are within normal limits. 21:25 Musculoskeletal/extremity: Extremities: grossly normal except: decreased ROM, laceration, pain, ROM: intact in all extremities, full active range of motion, full passive range of motion, Circulation is intact in all extremities. Compartment Syndrome exam of affected extremity: is normal. Vital Signs: 19:31 BP 131 / 89; Pulse 74; Resp 19; Temp 98.2(O); Pulse Ox 98% on R/A; Weight 93.89 kg; kd3 Height 6 ft. 1 in. ; 22:50 BP 122 / 83; Pulse 54; Resp 16; Pulse Ox 93% on R/A; ll3 19:31 Body Mass Index 27.31 (93.89 kg, 185.42 cm) kd3 Laceration: 21:25 Wound Repair of 7.5cm ( 3.0in ) subcutaneous laceration to dorsum of right hand. dwayne Irregularly shaped.. Skin/tissue flap noted.. missing tissue, trimmed minimal edges, non viable tissue only, area of tissue circumcribed, not connected. Distal neuro/vascular/tendon intact. Anesthesia: Local anesthetic administered with 8 mls of 1% lidocaine w/ Epi. Wound prep: Moderate cleansing by me, Copious irrigation. Skin closed with 4 4-0 Prolene using vertical mattress sutures and sterile technique. Dressed with Kerlix, pressure dressing, non-adherent dressing. MDM: 19:41 Patient medically screened. [facility] 21:30 Differential diagnosis: open fracture, contusion, abrasion, tendonitis. Data reviewed: [facility] vital signs, nurses notes, radiologic studies, plain films. Consideration of Admission/Observation Escalation of care including admission/observation considered. I considered the following discharge prescriptions or medication management in the emergency department Medications were administered in the Emergency Department. See MAR. Independent interpretation of the following test(s) in the Emergency Department X-Ray: My interpretation is no fb, no fx. Test considered but Not performed: Labs: no labs. Historians other than the Patient: Family Member: son. Care significantly affected by the following chronic conditions: Hypertension, mi, cad. 02/19 20:15 Order name: Hand Right 3 View XRAY [facility] 02/19 19:44 Order name: Dressing - Wound; Complete Time: 19:49 [facility] 02/19 19:44 Order name: Gloves, Sterile; Complete Time: 19:49 dwayne 02/19 19:44 Order name: Setup Suture Tray; Complete Time: 19:49 dwayne 02/19 19:44 Order name: Wound Care; Complete Time: 19:49 dwayne Administered Medications: 20:08 Drug: NS 0.9% IV 500 ml Route: IV; Rate: bolus; Site: left forearm; ph 22:52 Follow up: Response: No adverse reaction; IV Status: Completed infusion; IV Intake: ll3 500ml 20:08 Drug: Amoxicillin-Clavulanate PO 875 mg Route: PO; ph 22:51 Follow up: Response: No adverse reaction ll3 20:08 Drug: fentaNYL (PF) IVP 25 mcg Route: IVP; Site: left antecubital; ph 21:30 Follow up: Response: No adverse reaction; Marked relief of symptoms ll3 20:08 Drug: Ondansetron IVP 4 mg Route: IVP; Site: left antecubital; ph 22:51 Follow up: Response: No adverse reaction ll3 20:09 Drug: Tetanus Toxoid,Adsorbed IM 0.5 ml {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 Exp: 01/29/2024. ph Lot #: [id number]. } Route: IM; Site: left deltoid; 22:52 Follow up: Response: No adverse reaction ll3 20:10 Drug: ceFAZolin IVPB 2 grams Route: IVPB; Infused Over: 30 mins; Site: left forearm; ph 22:52 Follow up: Response: No adverse reaction; IV Status: Completed infusion; IV Intake: ll3 100ml 21:10 Drug: Lidocaine-Epinephrine Infiltration -1%: (1:100,000) 15 ml {Note: administered by as6 provider.} Volume: 20 ml; Route: Infiltration; 22:51 Follow up: Response: No adverse reaction ll3 22:50 Drug: fentaNYL (PF) IVP 50 mcg Route: IVP; Site: left forearm; ll3 22:50 Drug: Ondansetron IVP 4 mg Route: IVP; Site: left forearm; ll3 Disposition Summary: 02/19/23 21:36 Transfer Ordered Transfer Location: [facility] Reason: Higher level of care dwayne Condition: Stable dwayne Problem: new dwayne Symptoms: are unchanged dwayne Accepting Physician: rupa talia er(02/19/23 23:20) ll3 Diagnosis - Bitten by dog dwayne - Laceration without foreign body of right hand, initial encounter - complex, tissue dwayne loss Forms: - Medication Reconciliation Form dwayne - SBAR form dwayne Signatures: Dispatcher [employer] EDBismark Herndon MD MD cha Hall, Patricia RN RN ph Hung Mantilla RN RN as6 Rubén Mukherjee RN RN ll3 Heather Queen RN RN kd3 Corrections: (The following items were deleted from the chart) :20 21:36 to talia chauhan cha 3
--- NOTE | 2023-02-19 21:37 | ER ---
Nurse's Notes [facility] Name: Davis Kramer Age: 67 yrs Sex: Male : 1955 Arrival Date: 02/19/2023 Time: 19:23 Bed 4 Private MD: Diagnosis: Bitten by dog;Laceration without foreign body of right hand, initial encounter-complex, tissue loss Presentation: 02/19 19:31 Chief complaint: Patient states: About 15 minutes ago i tried to break up a fight kd3 between my little beagle and my Juan. I have a dog that's in heat so the males were fighting. They are vaccinated. They got me pretty good on my right hand. Coronavirus screen: Vaccine status:. Ebola Screen: No symptoms or risks identified at this time. Initial Sepsis Screen: Does the patient meet any 2 criteria? No. Patient's initial sepsis screen is negative. Does the patient have a suspected source of infection? No. Patient's initial sepsis screen is negative. Risk Assessment: Do you want to hurt yourself or someone else? Patient reports no desire to harm self or others. Onset of symptoms was February 19, 2023. 19:31 Method Of Arrival: Ambulatory kd3 19:31 Acuity: CHAPIS 3 kd3 Triage Assessment: 19:35 General: Appears uncomfortable, Behavior is calm, cooperative. Pain: Complains of pain kd3 in right hand. Injury Description: Bite sustained to right hand caused by a dog, is full thickness, Laceration sustained to dorsum of right hand. Historical: - Allergies: 19:35 Demerol; kd3 19:35 Morphine; kd3 - PMHx: 19:35 Hypertensive disorder; CA; PTSD; kd3 - PSHx: 19:35 back; Bora Knee replacement; kd3 - Immunization history:: Adult Immunizations up to date. - Social history:: Smoking status: unknown. - Family history:: not pertinent. Screenin:37 [facility] ED Fall Risk Assessment (Adult) History of falling in the last 3 months, ll3 including since admission No falls in past 3 months (0 pts) Confusion or Disorientation No (0 pts) Intoxicated or Sedated No (0 pts) Impaired Gait No (0 pts) Mobility Assist Device Used No (0 pt) Altered Elimination No (0 pt) Score/Fall Risk Level 0 - 2 = Low Risk Oriented to surroundings, Maintained a safe environment, Educated pt \T\ family on fall prevention, incl call for assistance when getting out of bed. Abuse screen: Denies threats or abuse. Denies injuries from another. Nutritional screening: No deficits noted. Tuberculosis screening: No symptoms or risk factors identified. Assessment: 19:35 General: Appears uncomfortable, Behavior is calm, cooperative. Pain: Complains of pain ll3 in right hand. Derm: Wound noted right hand. Injury Description: Laceration sustained to right hand is jagged, superficial, bleeding moderately, a small amount of bleeding noted at this time. 20:30 General: [place] [employer] notified . as6 22:50 Reassessment: Pt c/o pain to right hand, ERP notified, medicated as ordered. ll3 Vital Signs: 19:31 BP 131 / 89; Pulse 74; Resp 19; Temp 98.2(O); Pulse Ox 98% on R/A; Weight 93.89 kg; kd3 Height 6 ft. 1 in. ; 22:50 BP 122 / 83; Pulse 54; Resp 16; Pulse Ox 93% on R/A; ll3 19:31 Body Mass Index 27.31 (93.89 kg, 185.42 cm) kd3 ED Course: 19:24 Patient arrived in ED. kj1 19:31 Heather Queen, RN is Primary Nurse. kd3 19:35 Triage completed. kd3 19:35 Arm band placed on left wrist. kd3 19:37 Patient has correct armband on for positive identification. Bed in low position. Call ll3 light in reach. Side rails up X 1. 19:41 Bismark Arredondo MD is Attending Physician. dwayne 20:08 Annie Pritchett, RN is Primary Nurse. ph 20:37 Hand Right 3 View XRAY In Process Unspecified. EDMS 21:18 Dr Arredondo started an initial call with [facility] and spoke with MIKKI Montano. 21:49 Physician and Hospital bed approval by Ryder Noonan and MIKKI Hull at [address] ER. 22:08 Faxed over face sheet. [facility] 22:12 Contacted [facility]. stated that they will arrive soon. ah1 22:53 Assist provider with laceration repair on right hand that was between 2.6 to 7.5 cm ll3 using sutures. Set up tray. Performed by Bismark Arredondo MD Patient tolerated well. 23:20 Patient transferred, IV remains in place. ll3 Administered Medications: 20:08 Drug: NS 0.9% IV 500 ml Route: IV; Rate: bolus; Site: left forearm; ph 22:52 Follow up: Response: No adverse reaction; IV Status: Completed infusion; IV Intake: ll3 500ml 20:08 Drug: Amoxicillin-Clavulanate PO 875 mg Route: PO; ph 22:51 Follow up: Response: No adverse reaction ll3 20:08 Drug: fentaNYL (PF) IVP 25 mcg Route: IVP; Site: left antecubital; ph 21:30 Follow up: Response: No adverse reaction; Marked relief of symptoms ll3 20:08 Drug: Ondansetron IVP 4 mg Route: IVP; Site: left antecubital; ph 22:51 Follow up: Response: No adverse reaction ll3 20:09 Drug: Tetanus Toxoid,Adsorbed IM 0.5 ml {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 Exp: 01/29/2024. ph Lot #: [id number]. } Route: IM; Site: left deltoid; 22:52 Follow up: Response: No adverse reaction ll3 20:10 Drug: ceFAZolin IVPB 2 grams Route: IVPB; Infused Over: 30 mins; Site: left forearm; ph 22:52 Follow up: Response: No adverse reaction; IV Status: Completed infusion; IV Intake: ll3 100ml 21:10 Drug: Lidocaine-Epinephrine Infiltration -1%: (1:100,000) 15 ml {Note: administered by as6 provider.} Volume: 20 ml; Route: Infiltration; 22:51 Follow up: Response: No adverse reaction ll3 22:50 Drug: fentaNYL (PF) IVP 50 mcg Route: IVP; Site: left forearm; ll3 22:50 Drug: Ondansetron IVP 4 mg Route: IVP; Site: left forearm; ll3 Medication: 22:52 Vaccine Information Statement (VIS) provided today. Questions and/or concerns ll3 addressed. VIS edition date: March 26, 2021. Intake: 22:52 IV: 500ml; Total: 500ml. ll3 22:52 IV: 100ml; Total: 600ml. ll3 Outcome: 21:36 ER care complete, transfer ordered by MD. rice 23:20 Transferred by ground EMS to [facility], Transfer form completed. X-rays sent ll3 w/ patient. 23:20 Condition: stable 23:20 Instructed on the need for transfer, Demonstrated understanding of instructions. 23:20 Patient left the ED. ll3 Signatures: Dispatcher [employer] EDMS Bismark Arredondo MD MD cha Hall, Patricia, RN RN Gab, Anabell kj1 Hung Mantilla RN RN as6 Rubén Mukherjee RN RN ll3 Heather Queen RN RN 3 Neeru Galan
[2023-02-19 23:29] VITALS: TEMP 98.2
[2023-02-19 23:30] VITALS: BP 122/83; O2SAT 93
== END 2023-02-19 23:20 | disposition short-term general hospital (02) ==
LOC: ER 19:23
PROC: 0HQFXZZ Repair Right Hand Skin, External Approach (ICD-10-PCS; principal; 2023-02-19)
DX: S61.411A Laceration without foreign body of right hand, initial encounter (principal); W54.0XXA Bitten by dog, initial encounter; I10 Essential (primary) hypertension; Z23 Encounter for immunization; Z88.5 Allergy status to narcotic agent
CPT/HCPCS: 73130; 90471; 90714; 99285; 12002; J2001 ×2; J3010 ×2; J0692; J2405 ×2; J7040; J0690

== ENCOUNTER 2023-12-06 09:22 | Emergency (ER) | payer MEDICARE ==
--- OUTSIDE RECORDS SUMMARY | 2023-12-06 09:25 | XMS REPORT | Continuity of Care Document ---
Author Name Unknown Address [address] [place] [place] [address] [facility] Address [address] [place] [place] [address] Care Team Providers Care Nursing Manager Name Role Phone [facility] Primary Care Physician + Irasema Abreu Attending Clinician Hernando Man Attending Clinician Doctor Unassigned, Vill[place]a Attending Clinician U Adelina Escobar Attending Clinician Adam Daniel Attending Clinician GAYLORD_S Attending Clinician Unavailable OWENS_T Attending Clinician Unavailable GAYLORD_S Admitting Clinician Unavailable OWENS_T Admitting Clinician Unavailable Payers Payer Name Policy Type Policy Number Effective Date Expirati on Date Source [employer] OON [id number] 00:00:00 [employer] (MEDICARE REPLACEMENT HMO) [id number] 2020 00:00:00 Problems Condition Name Condition Details Condition Category Status Onset Date Resolution Date Last Treatment Date Treating Clinician Comments Source Diabetes mellitus type 2 in obese Diabetes mellitus type 2 in obese Disease Active 2012-08 00:00: 00 [facility] HTN (hypertens ion) HTN (hypertens ion) Disease Active 2012-08 00:00: 00 [facility] Seizure disorder Seizure disorder Disease Active 2012-08 00:00: 00 [facility] Fever Fever Disease Active 2012-08 00:00: 00 [facility] Bronchitis Bronchitis Disease Active 2012-08 00:00: 00 [facility] Social History Social Habit Start Date Stop Date Quantity Comments Source [facility] of Social function 2019-05-14 00:00:00 2019-05-14 00:00:00 [facility] Alcohol intake 2018-08-05 00:00:00 2018-08-05 00:00:00 Current non-drinker of alcohol (finding) [facility] Tobacco use and exposure 2013-07-31 00:00:00 2013-07-31 00:00:00 User of smokeless tobacco [facility] Sex Assigned At 1955 00:00:00 1955 00:00:00 [facility] Smoking Status Start Date Stop Date Source Never smoked tobacco [facility] Medications Ordered Medication Name Filled Medication Name Start Date Stop Date Current Medication? Ordering Clinician Indication Dosage Frequency Signature (SIG) Comments Components Source bromphenira mine-pseudo ephedrine-D M (BROMFED DM) 2-30-10 mg/5 mL syrup 2017-08 00:00: 00 Yes 10mL Take 10 mL by mouth 3 (three) times daily. [facility] OMEPRAZOLE 20 MG ORAL CPDR 2012-08 14:53: [address] [facility] LISINOPRIL 2.5 MG ORAL TAB 2012-08 14:53: [address] [facility] DIVALPROEX SODIUM (DEPAKOTE ORAL) 2012-08 14:53: 07 Yes Take by mouth. [facility] GLIPIZIDE ORAL 2012-08 14:53: 00 Yes 2.5{tbl } Take 2.[address] [facility] diclofenac (VOLTAREN) 75 mg EC tablet 2012-08 14:52: 52 Yes 75mg Take 75 mg by mouth 2 (two) times daily with meals. [facility] gabapentin (NEURONTIN) 300 mg tablet 2012-08 14:51: 58 Yes 300mg Take 300 mg by mouth 2 (two) times daily. [facility] NIACIN 500 MG ORAL TBSR 2012-08 17:10: [address] [facility] SERTRALINE 100 MG ORAL TAB 2012-08 17:10: [address] [facility] SIMVASTATIN 40 MG ORAL TAB 2012-08 17:10: [address] [facility] prazosin (MINIPRES) 1 mg capsule 2012-08 17:10: 44 Yes 1mg Take 1 mg by mouth every 12 (twelve) hours. [facility] HYDROcodone -acetaminop hen (NORCO) 5-325 mg tablet 2012-08 17:10: 44 Yes 1{tbl} Take 1 Tab by mouth every 6 (six) hours as needed. [facility] acetaminoph en (PAIN-HERBERT +) 650 mg Tab 2012-08 00:00: 00 Yes 650mg Take 650 mg by mouth every 6 (six) hours as needed (Fever and pain ). [facility] doxycycline (VIBRA-TABS ) 100 mg tablet 2012-08 00:00: 00 Yes 100mg Take 1 Tab by mouth 2 (two) times daily. [facility] Immunizations Ordered Immunization Name Filled Immunization Name Date Status Comments Source Influenza Virus Vaccine Unknown Completed [facility] Pneumococcal Polysaccharide, PPSV23 (PNEUMOVAX) Unknown Completed [facility] SARS-COV-2 COVID-19 PFIZER VACCINE Unknown Completed [facility] Procedures Procedure Date / Time Performed Performing Clinician Source INSURANCE CORRESPONDENCE 2023-03-21 05:01:00 Doc tor Unassigned, Villisca [facility] Encounters Start Date/Time End Date/Time Encounter Type Admission Type Attending Clinicians Care Facility Care Department Encounter ID Source 2023-02-22 06:58:05 Outpatient [facility] [id number] [facility] 2023-09-25 15:30:00 2023-09-25 16:30:00 Annual D2Me Irasema Brady [id number]. [id number] 2023-06-16 14:00:00 2023-06-16 14:30:00 Care Perry Man [id number]. [id number] [facility] 2023-03-21 00:00:00 2023-03-21 00:00:00 Orders Only Doctor Unassigned, Villisca [facility] [id number] [facility] 2023-01-24 18:30:00 2023-01-24 19:30:00 SHOAIB Visit Adelina Blanca [id number]. [id number]. [id number] [facility] 2022-09-19 14:30:00 2022-09-19 15:30:00 CAV Adam Daniel [id number]. [id number] [facility] 2022-06-15 15:30:00 2022-06-15 16:30:00 CAV Irasemacalvin Abreu [id number]. [id number] [facility] 2022-06-15 00:00:00 2022-06-15 00:00:00 Outpatient GAYLORD_S DMG DMG [id number] [facility] 2022-05-20 00:00:00 2022-05-20 00:00:00 Outpatient GAYLORD_S DMG DMG [id number] [facility] 2022-03-04 03:28:00 2022-03-04 03:28:00 Outpatient GAYLORD_S DMG DMG [id number] [facility] 2021-12-10 12:01:00 2021-12-10 12:01:00 Outpatient GAYLORD_S DMG DMG [id number] [facility] 2021-09-28 08:00:00 2021-09-28 08:00:00 Outpatient GAYLORD_S DMG DMG [id number] [facility] 2021-09-23 07:33:00 2021-09-23 07:33:00 Outpatient GAYLORD_S DMG DMG [id number] [facility] 2020-12-16 04:25:00 2020-12-16 04:25:00 Outpatient OWENS_T DMG DMG [id number] [facility] 2020-11-21 06:02:00 2020-11-21 06:02:00 Outpatient DMG DMG [id number] [facility]
[2023-12-06 10:13] LABS: Absolute Basophils 0.1 K/uL (0-0.5); Absolute Monocytes 0.7 K/uL (0.1-1.3); Absolute Neutrophil 7.6 K/uL (1.8-8.0); Basophils % 0.8 % (0-1.3); Eosinophils % 0.1 % (0-4.4); Hematocrit 43.4 % (39.6-49.0); Hemoglobin 14.7 g/dL (13.6-17.9); Lymphocytes % 10.7 % (15.3-44.8); MCHC 33.8 g/dL (32.0-36.0); MPV 7.9 fL (7.6-11.3); Monocytes % 7.6 % (3.3-12.3); Neutrophils % 80.8 % (41.7-73.7); Nucleated Red Blood Cells % 0.1 % (0-0); Platelets 206 thou/uL (152-406); RBC Red Blood Cell Count 5.05 M/uL (4.33-5.43); Red Cell Distribution Width 13.9 % (12.1-15.2)
[2023-12-06 10:36] LABS: Albumin 3.7 g/dL (3.4-5.0); Anion Gap 7.9 mEq/L (5.0-15.0); Bilirubin Direct 0.2 mg/dL (0-0.2); Bilirubin Indirect, Calculated 0.4 mg/dL (0.2-0.8); Bilirubin Total 0.6 mg/dL (0.2-1.0); Globulin 3.8 g/dL (2.3-3.5); Potassium 3.9 mEq/L (3.5-5.1); Protein, Total 7.5 g/dL (6.4-8.2); Troponin High Sensitivity 6.3 pg/mL (<58.9)
[2023-12-06 10:40] LABS: SARS-CoV-2 Antigen CONTROL BLUE LINE VIS/BG OK; SARS-CoV-2 Antigen Rapid Res Negative (Negative)
--- NOTE | 2023-12-06 10:57 | ER ---
Nurse's Notes [facility] Name: Davis Kramer Age: 68 yrs Sex: Male : 1955 Arrival Date: 12/06/2023 Time: 09:22 Bed 17 Private MD: Diagnosis: Bronchitis Presentation: 12/05 09:49 Chief complaint: Patient states: he started having flu-like symptoms yesterday and is ap3 having cough, congestion, sore throat. patient complains of difficulty swallowing and sore throat with body aches. Coronavirus screen: Client presents with at least one sign or symptom that may indicate coronavirus-19. Ebola Screen: No symptoms or risks identified at this time. Initial Sepsis Screen: Does the patient meet any 2 criteria? HR > 90 bpm. Does the patient have a suspected source of infection? No. Patient's initial sepsis screen is negative. Risk Assessment: Do you want to hurt yourself or someone else? Patient reports no desire to harm self or others. Onset of symptoms was December 05, 2023. 09:49 Method Of Arrival: Ambulatory ap3 09:49 Acuity: CHAPIS 3 ap3 Triage Assessment: 09:52 General: Appears ill, Behavior is calm. Pain: Complains of pain in throat, generalized ap3 body aches. EENT: Reports pain when swallowing. Neuro: Level of Consciousness is awake, alert, obeys commands, Oriented to person, place, time, situation. Cardiovascular: Patient's skin is warm and dry. Respiratory: Reports cough that is Airway is patent Respiratory effort is even, unlabored, Respiratory pattern is regular, symmetrical. Historical: - Allergies: 09:51 Demerol; (causes nausea and vomiting); ap3 - PMHx: 09:51 Hypertensive disorder; PTSD; [place]; Seizure; ap3 - PSHx: 09:51 back; Bora Knee replacement; ap3 - Immunization history:: Client reports receiving the 2nd dose of the Covid vaccine. - Infectious Disease History:: Denies. - Social history:: Smoking status: Patient reports the use of cigarette tobacco products, unknown. Screenin:53 Abuse screen: Denies threats or abuse. Nutritional screening: No deficits noted. ap3 Tuberculosis screening: No symptoms or risk factors identified. 09:59 [facility] ED Fall Risk Assessment (Adult) History of falling in the last 3 months, kc6 including since admission No falls in past 3 months (0 pts) Confusion or Disorientation No (0 pts) Intoxicated or Sedated No (0 pts) Impaired Gait No (0 pts) Mobility Assist Device Used No (0 pt) Altered Elimination No (0 pt) Score/Fall Risk Level 0 - 2 = Low Risk. Assessment: 09:59 General: Appears in no apparent distress. comfortable, well groomed, well developed, kc6 Behavior is calm, cooperative, appropriate for age. Pain: Complains of pain in throat. Neuro: Level of Consciousness is awake, alert, obeys commands, Oriented to person, place, time, situation, Appropriate for age. Cardiovascular: Denies chest pain, Capillary refill < 3 seconds. Respiratory: Reports cough that is Airway is patent Trachea midline Respiratory effort is even, unlabored, Respiratory pattern is regular, symmetrical. GI: No signs and/or symptoms were reported involving the gastrointestinal system. : No signs and/or symptoms were reported regarding the genitourinary system. EENT: Reports difficulty swallowing nasal congestion. Derm: No signs and/or symptoms reported regarding the dermatologic system. Skin is intact, is healthy with good turgor, Skin is pink, warm \T\ dry. Musculoskeletal: No signs and/or symptoms reported regarding the musculoskeletal system. Circulation, motion, and sensation intact. Capillary refill < 3 seconds, Range of motion: intact in all extremities. 10:59 Reassessment: Patient appears in no apparent distress at this time. No changes from kc6 previously documented assessment. Patient and/or family updated on plan of care and expected duration. Pain level reassessed. Patient is alert, oriented x 3, equal unlabored respirations, skin warm/dry/pink. Vital Signs: 09:49 BP 151 / 84; Pulse 94; Resp 19; Temp 99.9; Pulse Ox 97% on R/A; Weight 98.43 kg; Height ap3 6 ft. 1 in. ; Pain 7/10; 11:07 BP 137 / 78; Pulse 94; Resp 16 S; Pulse Ox 97% on R/A; kc6 09:49 Body Mass Index 28.63 (98.43 kg, 185.42 cm) ap3 09:49 Pain Scale: Adult ap3 ED Course: 09:27 Patient arrived in ED. im 09:29 Radha Sims MD is Attending Physician. sp3 09:38 Ana Luisa Dickey, RN is Primary Nurse. kc6 09:51 Triage completed. ap3 09:53 Arm band placed on right wrist. ap3 09:53 Patient has correct armband on for positive identification. Bed in low position. Call ap3 light in reach. Side rails up X 1. Pulse ox on. NIBP on. 09:59 Inserted saline lock: 20 gauge in right antecubital area, using aseptic technique. kc6 Blood collected. 10:25 CXR XRAY In Process Unspecified. EDMS 11:21 No provider procedures requiring assistance completed. IV discontinued, intact, kc6 bleeding controlled, No redness/swelling at site. Pressure dressing applied. 11:23 Provided Education on:. ld1 Administered Medications: No medications were administered Medication: 11:22 VIS not applicable for this client. kc6 Outcome: 10:56 Discharge ordered by . sp3 11:21 Discharged to home ambulatory, kc6 11:21 Condition: good 11:21 Discharge instructions given to patient, Instructed on discharge instructions, follow up and referral plans. medication usage, Demonstrated understanding of instructions, follow-up care, medications, Prescriptions given X 2, 11:23 Patient left the ED. ld1 Signatures: Dispatcher [employer] EDMS Olena Castillo RN RN ap3 Marylu Miles RN RN ld1 Radha Sims MD MD sp3 Ana Luisa Dickey RN RN kc6 Ashlyn Vieyra
--- NOTE | 2023-12-06 10:57 | EDPHYS ---
Physician Documentation [facility] Name: Davis Kramer Age: 68 yrs Sex: Male : 1955 Arrival Date: 12/06/2023 Time: 09:22 Bed 17 Private MD: ED Physician Radha Sims HPI: 12/05 09:51 This 68 yrs old Male presents to ER via Unassigned with complaints of Flu Symptoms. sp3 09:51 68-year-old male with history of hypertension and prior [place] now presents to the ED with sp3 chief complaint cough, sore throat and URI symptoms since yesterday morning. He denies any sick contacts or travel history. Also denies fever, chest pain, abdominal pain, nausea, vomiting, diarrhea, prolonged immobilization, groin pain, shortness of breath, or any other signs or symptoms on ROS at this time.. Historical: - Allergies: 09:51 Demerol; (causes nausea and vomiting); ap3 - PMHx: 09:51 Hypertensive disorder; PTSD; [place]; Seizure; ap3 - PSHx: 09:51 back; Bora Knee replacement; ap3 - Immunization history:: Client reports receiving the 2nd dose of the Covid vaccine. - Infectious Disease History:: Denies. - Social history:: Smoking status: Patient reports the use of cigarette tobacco products, unknown. ROS: 09:52 Constitutional: Negative for fever, chills, and weight loss, Eyes: Negative for injury, sp3 pain, redness, and discharge, Neck: Negative for injury, pain, and swelling, Cardiovascular: Negative for chest pain, palpitations, and edema, Abdomen/GI: Negative for abdominal pain, nausea, vomiting, diarrhea, and constipation, Back: Negative for injury and pain, MS/Extremity: Negative for injury and deformity, Skin: Negative for injury, rash, and discoloration, Neuro: Negative for headache, weakness, numbness, tingling, and seizure, Psych: Negative for depression, anxiety, suicide ideation, homicidal ideation, and hallucinations, Allergy/Immunology: Negative for hives, rash, and allergies, Endocrine: Negative for neck swelling, polydipsia, polyuria, polyphagia, and marked weight changes, 09:52 All other systems are negative, Exam: 09:52 Constitutional: This is a well developed, well nourished patient who is awake, alert, sp3 and in no acute distress. Head/Face: Normocephalic, atraumatic. Eyes: Pupils equal round and reactive to light, extra-ocular motions intact. Lids and lashes normal. Conjunctiva and sclera are non-icteric and not injected. Cornea within normal limits. Periorbital areas with no swelling, redness, or edema. Neck: Trachea midline, no thyromegaly or masses palpated, and no cervical lymphadenopathy. Supple, full range of motion without nuchal rigidity, or vertebral point tenderness. No Meningismus. Chest/axilla: Normal chest wall appearance and motion. Nontender with no deformity. No lesions are appreciated. Cardiovascular: Regular rate and rhythm with a normal S1 and S2. No gallops, murmurs, or rubs. Normal PMI, no JVD. No pulse deficits. Abdomen/GI: Soft, non-tender, with normal bowel sounds. No distension or tympany. No guarding or rebound. No evidence of tenderness throughout. Back: No spinal tenderness. No costovertebral tenderness. Full range of motion. Skin: Warm, dry with normal turgor. Normal color with no rashes, no lesions, and no evidence of cellulitis. MS/ Extremity: Pulses equal, no cyanosis. Neurovascular intact. Full, normal range of motion. Neuro: Awake and alert, GCS 15, oriented to person, place, time, and situation. Cranial nerves II-XII grossly intact. Motor strength 5/5 in all extremities. Sensory grossly intact. Cerebellar exam normal. Normal gait. Psych: Awake, alert, with orientation to person, place and time. Behavior, mood, and affect are within normal limits. 09:52 ENT: Swollen tonsils without peritonsillar swelling, lateralization of the uvula or other signs or symptoms of abscess. Active cough noted dry in nature without production.. 09:54 ECG was reviewed by the Attending Physician. EKG demonstrates normal sinus rhythm at 84 sp3 bpm with normal intervals, normal QRS, normal axis, normal ST's ST changes without evidence of acute ischemia. Vital Signs: 09:49 BP 151 / 84; Pulse 94; Resp 19; Temp 99.9; Pulse Ox 97% on R/A; Weight 98.43 kg; Height ap3 6 ft. 1 in. ; Pain 7/10; 11:07 BP 137 / 78; Pulse 94; Resp 16 S; Pulse Ox 97% on R/A; kc6 09:49 Body Mass Index 28.63 (98.43 kg, 185.42 cm) ap3 09:49 Pain Scale: Adult ap3 MDM: 09:31 Patient medically screened. sp3 09:55 Data reviewed: vital signs, nurses notes, lab test result(s), EKG, radiologic studies. sp3 ED course: 68-year-old male with PMH above now here for URI symptoms. Differential diagnosis includes strep pharyngitis, other viral pharyngitis, viral syndrome, bronchitis, COVID-19, influenza, and to a lesser degree pneumonia or ACS spectrum. Workup will include EKG, chest x-ray and general laboratory values including swabs. Disposition pending workup with probable discharge on appropriate medication. Based on EKG and clinical impression, I am not highly suspicious for critical illness including ACS, sepsis, shock, PE or any other critical pathway at this time.. 10:55 ED course: Swabs negative and EKG does not show any significant abnormality. Bronchitis sp3 versus right lower lobe pneumonia early in nature on x-ray. Will place on Zithromax and Tessalon Perles and follow-up with PCP.. 12/05 09:31 Order name: Flu; Complete Time: 10:55 sp3 12/05 09:31 Order name: Strep sp3 12/05 09:31 Order name: SARS RAPID; Complete Time: 10:55 sp3 12/05 09:31 Order name: Basic Metabolic Panel; Complete Time: 10:55 sp3 12/05 09:31 Order name: CBC with Diff; Complete Time: 10:55 sp3 12/05 09:31 Order name: LFT's; Complete Time: 10:55 sp3 12/05 09:31 Order name: NT PRO-BNP; Complete Time: 10:55 sp3 12/05 09:31 Order name: Troponin HS; Complete Time: 10:55 sp3 12/05 10:43 Order name: Throat Culture EDMS 12/05 09:31 Order name: CXR XRAY; Complete Time: 11:17 sp3 12/05 09:31 Order name: EKG - Nurse/Tech; Complete Time: 09:59 sp3 12/05 09:31 Order name: IV Saline Lock; Complete Time: 09:59 sp3 12/05 09:31 Order name: Labs collected and sent; Complete Time: 09:59 sp3 Administered Medications: No medications were administered Disposition Summary: 12/06/23 10:56 Discharge Ordered Notes: Location: Home sp3 Condition: Stable sp3 Diagnosis - Bronchitis sp3 Followup: sp3 - With: Private Physician - When: Upon discharge from the Emergency Department - Reason: Continuance of care Discharge Instructions: - Discharge Summary Sheet sp3 - Acute Bronchitis, Adult sp3 Forms: - Medication Reconciliation Form sp3 - Thank You Letter sp3 - Antibiotic Education sp3 - Prescription Opioid Use sp3 - Patient Portal Instructions sp3 - Leadership Thank You Letter sp3 Prescriptions: - Tessalon Perles 100 mg Oral Capsule - take 1 capsule ORAL route every 8 hours As needed; 15 capsule; Refills: 0, sp3 Product Selection Permitted - Zithromax Z-Michele 250 mg Oral Tablet - take 1 tablet ORAL route as directed for 5 days Day 1 - take two (2) tablets sp3 one time. Day 2, 3, 4 , 5 take one (1) tablet once daily.; 6 tablet; Refills: 0, Product Selection Permitted Signatures: Dispatcher [employer] EDOlena Rodriguez RN RN ap3 Radha Sims MD MD sp3 Corrections: (The following items were deleted from the chart) 09: 09:31 Influenza Screen (A \T\ B)+BA.LAB.BRZ ordered. EDMS EDMS 09:31 09:31 Group A Streptococcus Rapid Sc+BA.LAB.BRZ ordered. EDMS EDMS 09: 09:31 SARS-COV-2 Antigen Rapid+I.LAB.BRZ ordered. EDMS EDMS 09:31 09:31 BASIC METABOLIC PANEL+C.LAB.BRZ ordered. EDMS EDMS 09:31 09:31 CBC+H.LAB.BRZ ordered. EDMS EDMS 09:31 09:31 HEPATIC FUNCTION+C.LAB.BRZ ordered. EDMS EDMS 09:31 09:31 PROBNP+C.LAB.BRZ ordered. EDMS EDMS 09:31 09:31 Troponin High Sensitivity+C.LAB.BRZ ordered. EDMS EDMS 09:31 09:31 Chest Single View+RAD.RAD.BRZ ordered. EDMS EDMS
--- NOTE | 2023-12-06 11:14 | RAD REPORT ---
EXAM DESCRIPTION: RADChest Single View12/06/2023 10:23 am CLINICAL HISTORY: COUGH COMPARISON: Chest Single View dated 01/20/2023; Chest Single View dated 11/14/2022; Chest Single View d ated 06/28/2022; Chest Single View dated 06/08/2022 TECHNIQUE: Portable AP view of the chest. FINDINGS: The lungs are clear. No pneumothorax or effusion. The cardiomediastinal contours are unre markable. IMPRESSION: No acute cardiopulmonary process.
[2023-12-06 22:39] VITALS: BP 137/78; TEMP 99.9; O2SAT 97
== END 2023-12-06 11:23 | disposition home or self-care (01) ==
LOC: ER 09:22
DX: J40 Bronchitis, not specified as acute or chronic (principal); Z11.52 Encounter for screening for COVID-19; Z88.5 Allergy status to narcotic agent; Z72.0 Tobacco use
CPT/HCPCS: 36415; 71045; 80048; 80076; 83880; 84484; 85025; 87070; 87081; 87804; 87811

== ENCOUNTER 2024-04-06 10:09 | Emergency (ER) | payer MEDICARE ==
[2024-04-06] MEDS ORDERED: SMZ./TMP. 800/160 MG TABLET ONE (11:00)
[2024-04-06] MEDS ORDERED: CEPHALEXIN 250 MG CAP ONE (11:00)
[2024-04-06] MEDS ORDERED: MUPIROCIN 2% OINT 22GM TUBE TOP ONE (11:00)
[2024-04-06] MEDS ORDERED: HYDROCODONE/APAP 10/325 TAB ONE (11:01)
--- NOTE | 2024-04-06 11:40 | RAD REPORT ---
EXAM DESCRIPTION: RAD - Foot Right 3 View - 04/06/2024 11:30 am CLINICAL HISTORY: PAIN COMPARISON: No comparisons FINDINGS/IMPRESSION: No acute fracture. No malalignment. Mild degenerative changes are present the f irst MTP joint. Plantar and dorsal aspect calcaneal spurs. Peripheral vascular calcifications.
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
[2024-04-06 12:45] VITALS: TEMP 98
[2024-04-06 12:47] VITALS: BP 148/80; O2SAT 96
== END 2024-04-06 12:39 | disposition home or self-care (01) ==
LOC: ER 10:09
DX: S90.31XA Contusion of right foot, initial encounter (principal); L03.115 Cellulitis of right lower limb; V49.49XA Driver injured in collision with other motor vehicles in traffic accident, initial encounter; Z96.653 Presence of artificial knee joint, bilateral
CPT/HCPCS: 99283

== ENCOUNTER 2025-04-10 23:58 | Emergency (ER) | payer OTHER ==
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
[2025-04-11 00:47] LABS: Absolute Lymphocytes (CBC) 2.4 K/uL (0.7-4.9); Hematocrit 44.1 % (39.6-49.0); Hemoglobin 15.1 g/dL (13.6-17.9); MCH 29.2 pg (27.0-35.0); MCHC 34.3 g/dL (32.0-36.0); MCV 85.0 fL (80-100); MPV 7.8 fL (7.6-11.3); Nucleated RBC Absolute Count 0.0 (0-0); Nucleated Red Blood Cells % 0.1 % (0-0); RBC Red Blood Cell Count 5.19 M/uL (4.33-5.43); White Blood Count 8.70 thou/uL (4.3-10.9)
[2025-04-11 00:57] LABS: ALT/SGPT 22.0 U/L (16-61); AST/SGOT 17.0 U/L (15-37); Albumin 3.7 g/dL (3.4-5.0); Albumin/Globulin Ratio 1.0 (1.1-1.8); Alkaline Phosphatase 78.0 U/L (45-117); Anion Gap 7.9 mEq/L (5.0-15.0); BUN Blood Urea Nitrogen 24.0 mg/dL (7-18); Globulin 3.7 g/dL (2.3-3.5); Glucose Level 126.0 mg/dL (74-106); Potassium 3.9 mEq/L (3.5-5.1)
[2025-04-11 00:58] LABS: Influenza A Ag Negative; Influenza B Ag Negative; SARS-CoV-2 Antigen Rapid Res Negative (Negative)
--- NOTE | 2025-04-11 01:50 | RAD REPORT ---
EXAM DESCRIPTION: Chest Single View CLINICAL HISTORY: COUGH COMPARISON: Chest x-ray 03/01/2025 TECHNIQUE: Single AP view of the chest. FINDINGS: Lung volumes adequate. Cardiac silhouette is normal in size. No pneumothorax. No large pleural effusion. No focal consolidation. No acute bony finding. IMPRESSION: No evidence of acute cardiopulmonary disease. Electronically signed by: Sarai Blevins MD 04/11/2025 01:47 AM CDT RP TYG Due to temporary technical issues with the PACS/Amadesa reporting system, reports are being gurwinder d by the in-house radiologist without review as a courtesy to ensure prompt reporting. The interpreting radiologist is fully responsible for the content of the report. Transcribed Date/Time: 04/11/2025 1:50 AM
[2025-04-11] MEDS ORDERED: CEFTRIAXONE 1000 MG/VIAL ONE (02:13)
[2025-04-11] MEDS ORDERED: ONDANSETRON 4 MG/2 ML VIAL ONE (02:13)
[2025-04-11] MEDS ORDERED: BENZONATATE 100 MG CAP PO ONE (02:14)
[2025-04-11] MEDS ORDERED: IBUPROFEN 400 MG TAB ONE (02:14)
[2025-04-11] MEDS ORDERED: ACETAMINOPHEN 500 MG TAB ONE (02:14)
[2025-04-11] MEDS ORDERED: WATER FOR INJ,STERILE 10 ML ONE (02:15)
[2025-04-11] MEDS ORDERED: GUAIFENESIN/DM 5 ML UCUP ONE (02:15)
[2025-04-11] MEDS ORDERED: ONDANSETRON 4 MG (ODT) TAB ONE (02:16)
--- NOTE | 2025-04-11 02:48 | EDPHYS ---
Physician Documentation [facility] Name: Davis Kramer Age: 69 yrs Sex: Male : 1955 Arrival Date: 04/10/2025 Time: 23:58 Bed 5 Private MD: ED Physician Dung Hendrix HPI: 04/11 00:13 This 69 yrs old Male presents to ER via Unassigned with complaints of Flu sp4 Symptoms, Cough, Congestion, Sore Throat. 20:27 69-year-old male presents with complaint of feeling unwell, cough congestion sp4 sore throat and bilateral earache.. Historical: - Allergies: 00:27 Demerol; (causes nausea and vomiting); vc1 - PMHx: 00:27 Hypertensive disorder; NC; PTSD; Seizure; ; CAUTION WHEN WAKING UP HAS PTSD; vc1 - PSHx: 00:27 back; Bora Knee replacement; vc1 - Immunization history:: Adult Immunizations up to date. - Infectious Disease History:: Denies. - Social history:: Smoking status: Patient denies any tobacco usage or history of. - Family history:: not pertinent. ROS: 20:27 Constitutional: Negative for fever, chills, and weight loss, positive cough, positive sp4 congestion, positive sore throat, positive bilateral earache 20:27 All other systems are negative, Exam: 20:27 Constitutional: This is a well developed, well nourished patient who is awake, alert, sp4 and in no acute distress. Head/Face: Normocephalic, atraumatic. Eyes: Pupils equal round and reactive to light, extra-ocular motions intact. Lids and lashes normal. Conjunctiva and sclera are not injected. Cornea within normal limits. Periorbital areas with no swelling, redness, or edema. ENT: Nares patent. No nasal discharge, no septal abnormalities noted. Tympanic membranes are normal and external auditory canals are clear. Oropharynx with no redness, swelling, or masses, exudates, or evidence of obstruction, uvula midline. Mucous membranes moist. Neck: Trachea midline, no thyromegaly or masses palpated, and no cervical lymphadenopathy. Supple, full range of motion without nuchal rigidity, or vertebral point tenderness. Chest/axilla: Normal chest wall appearance and motion. Nontender with no deformity. No lesions are appreciated. Cardiovascular: Regular rate and rhythm with a normal S1 and S2. No gallops, murmurs, or rubs. No pulse deficits. Respiratory: Lungs have equal breath sounds bilaterally, clear to auscultation and percussion. No rales, rhonchi or wheezes noted. No increased work of breathing, no retractions or nasal flaring. Abdomen/GI: Soft, with normal bowel sounds. No distension or tympany. No guarding or rebound. No evidence of tenderness throughout. Back: No spinal tenderness. No costovertebral tenderness. Skin: Warm, dry with normal turgor. Normal color with no rashes, no lesions, and no evidence of cellulitis. MS/ Extremity: Pulses equal, no cyanosis. Neurovascular intact. Full, normal range of motion. Neuro: Awake and alert, GCS 15, oriented to person, place, time, and situation. Cranial nerves II-XII grossly intact. Motor strength 5/5 in all extremities. Sensory grossly intact. Psych: Awake, alert, with orientation to person, place and time. Behavior, mood, and affect are within normal limits Vital Signs: 00:22 Weight 89.36 kg; Height 6 ft. 1 in. ; vc1 00:29 BP 139 / 90; Pulse 70; Resp 18 S; Temp 97.6; Pulse Ox 95% on R/A; ha1 01:30 BP 131 / 90; Pulse 65; Resp 18 S; Pulse Ox 95% on R/A; ha1 02:30 BP 128 / 84; Pulse 67; Resp 18 S; Pulse Ox 96% on R/A; ha1 03:10 BP 134 / 88; Pulse 71; Resp 18 S; Pulse Ox 96% on R/A; ha1 00:22 Body Mass Index 25.99 (89.36 kg, 185.42 cm) vc1 [place] Coma Score: 20:27 Eye Response: spontaneous(4). Motor Response: obeys commands(6). Verbal Response: sp4 oriented(5). Total: 15. MDM: 00:13 Medical Screening Exam initiated sp4 20:27 Differential Diagnosis: Obstructed Airway Bronchitis Influenza Upper Respiratory sp4 Infection. Data reviewed: vital signs, nurses notes, lab test result(s). Consideration of Admission/Observation Escalation of care including admission/observation considered. ED course: Patient has signs of pharyngitis and persistent cough. Will provide Zithromax and symptomatic medications.. 04/11 00:13 Order name: CBC with Diff; Complete Time: sp4 04/11 00:13 Order name: CMP; Complete Time: sp4 04/11 00:13 Order name: COVID-19 Ag + Flu A+B Ag; Complete Time: sp4 04/11 00:13 Order name: Chest Single View XRAY; Complete Time: 02: sp4 04/11 00:13 Order name: IV Saline Lock; Complete Time: 00: sp4 04/11 00:13 Order name: Labs collected and sent; Complete Time: : sp4 Administered Medications: 02:25 Drug: Acetaminophen PO 1000 mg PO once Route: PO; ha1 03:10 Follow up: Response: No adverse reaction; Marked relief of symptoms; Pain is decreased ha1 02:25 Drug: Dextromethorphan-Guaifenesin PO Liquid 10 mg-100 mg/5 mL 10 ml PO once Route: PO; ha1 03:10 Follow up: Response: No adverse reaction; Marked relief of symptoms ha1 02:25 Drug: Tessalon Perle PO 200 mg PO once Route: PO; ha1 03:10 Follow up: Response: No adverse reaction; Marked relief of symptoms ha1 02:25 Drug: Ondansetron PO 4 mg PO once Route: PO; ha1 03:10 Follow up: Response: No adverse reaction; Marked relief of symptoms ha1 02:25 Drug: Rocephin (cefTRIAXone) IM 1 grams IM once Route: IM; Site: right deltoid; ha1 03:10 Follow up: Response: No adverse reaction ha1 02:26 Drug: Ibuprofen PO 800 mg PO once Route: PO; ha1 03:10 Follow up: Response: No adverse reaction; Marked relief of symptoms ha1 Disposition: 20:27 Chart complete. sp4 Disposition Summary: 04/11/25 02:47 Discharge Ordered Notes: Location: Home sp4 Problem: new sp4 Symptoms: have improved sp4 Condition: Stable sp4 Diagnosis - Acute pharyngitis, unspecified sp4 - Cough sp4 Followup: sp4 - With: Private Physician - When: 7 - 10 days - Reason: Recheck today's complaints Discharge Instructions: - Discharge Summary Sheet sp4 - Pharyngitis, [id number] sp4 Forms: - Work release form rv1 - Patient Portal Instructions sp4 Prescriptions: - dextromethorphan-guaifenesin 20-400 mg Oral tablet - take 1 tablet ORAL route every 4 hours as needed for cough; 60 tablet; Refills: sp4 0, Product Selection Permitted - Benadryl 25 mg Oral capsule - take 1 capsule ORAL route every 8 hours As needed PRN redness or itching; 30 sp4 tablet; Refills: 0, Product Selection Permitted - Ibuprofen 800 mg Oral Tablet - take 1 tablet ORAL route every 8 hours As needed take with food; 30 tablet; sp4 Refills: 0, Product Selection Permitted - Zithromax Z-Michele 250 mg Oral Tablet - take 1 tablet ORAL route as directed for 5 days Day 1 - take two (2) tablets sp4 one time. Day 2, 3, 4 , 5 take one (1) tablet once daily.; 6 tablet; Refills: 0, Product Selection Permitted Signatures: Dispatcher [employer] EDMS Jazmine Daigle, RN RN vc1 Morena Bland RN RN ha1 Dung Hendrix MD MD sp4 Corrections: (The following items were deleted from the chart) 00:14 00:14 Chest Single View+RAD.RAD.BRZ ordered. EDMS EDMS 00:14 00:14 COVID-19 Ag + Flu A+B Ag+I.LAB.BRZ ordered. EDMS EDMS
--- NOTE | 2025-04-11 02:48 | ER ---
Nurse's Notes [facility] Name: Davis Kramer Age: 69 yrs Sex: Male : 1955 Arrival Date: 04/10/2025 Time: 23:58 Bed 5 Private MD: Diagnosis: Acute pharyngitis, unspecified;Cough Presentation: 04/11 00:22 Chief complaint: Patient states: been coughing with congestion and feels like my throat vc1 is closing up after cleaning a room that had a lot of cats in it. Coronavirus screen: Client denies travel out of the [place] in the last 14 days. At this time, the client does not indicate any symptoms associated with coronavirus-19. Ebola Screen: Patient negative for fever greater than or equal to 101.5 degrees Fahrenheit, and additional compatible Ebola Virus Disease symptoms Patient denies exposure to infectious person. Patient denies travel to an Ebola-affected area in the 21 days before illness onset. No symptoms or risks identified at this time. Initial Sepsis Screen: Does the patient meet any 2 criteria? No. Patient's initial sepsis screen is negative. Does the patient have a suspected source of infection? No. Patient's initial sepsis screen is negative. Risk Assessment: Do you want to hurt yourself or someone else? Patient reports no desire to harm self or others. 00:22 Method Of Arrival: Ambulatory vc1 00:22 Acuity: CHAPIS 4 vc1 00:35 Onset of symptoms was April 11, 2025. ha1 Triage Assessment: 00:28 General: Appears in no apparent distress. comfortable, Behavior is calm, cooperative, vc1 appropriate for age. Pain: Complains of pain in throat Pain does not radiate. Pain currently is 6 out of 10 on a pain scale. EENT: Reports pain in throat tight throat\E\. Neuro: Level of Consciousness is awake, alert, obeys commands, Oriented to person, place, time, situation, Appropriate for age. Cardiovascular: Capillary refill < 3 seconds Patient's skin is warm and dry. Respiratory: Airway is patent Respiratory effort is even, unlabored, Respiratory pattern is regular, symmetrical, Breath sounds are clear. GI: No deficits noted. No signs and/or symptoms were reported involving the gastrointestinal system. : No deficits noted. No signs and/or symptoms were reported regarding the genitourinary system. Derm: Skin is intact, is healthy with good turgor, Skin is dry, Skin is normal, Skin temperature is warm. Musculoskeletal: Circulation, motion, and sensation intact. Range of motion: intact in all extremities. Historical: - Allergies: 00:27 Demerol; (causes nausea and vomiting); vc1 - PMHx: 00:27 Hypertensive disorder; [place]; PTSD; Seizure; ; CAUTION WHEN WAKING UP HAS PTSD; vc1 - PSHx: 00:27 back; Bora Knee replacement; vc1 - Immunization history:: Adult Immunizations up to date. - Infectious Disease History:: Denies. - Social history:: Smoking status: Patient denies any tobacco usage or history of. - Family history:: not pertinent. Screenin:34 [facility] ED Fall Risk Assessment (Adult) History of falling in the last 3 months, ha1 including since admission No falls in past 3 months (0 pts) Confusion or Disorientation No (0 pts) Intoxicated or Sedated No (0 pts) Impaired Gait No (0 pts) Mobility Assist Device Used No (0 pt) Altered Elimination No (0 pt) Score/Fall Risk Level 0 - 2 = Low Risk Oriented to surroundings, Maintained a safe environment, Hourly rounding (assess needs \T\ fall precautionary measures) done. Abuse screen: Denies threats or abuse. Denies injuries from another. Nutritional screening: No deficits noted. Tuberculosis screening: No symptoms or risk factors identified. Assessment: 00:31 General: Appears uncomfortable, Behavior is calm, cooperative. Pain: Complains of pain ha1 in sore throat Pain currently is 4 out of 10 on a pain scale. Neuro: Level of Consciousness is awake, alert, obeys commands, Oriented to person, place, time, situation. Cardiovascular: Capillary refill < 3 seconds Patient's skin is warm and dry. Respiratory: Reports cough that is dry, sore throat Breath sounds are clear bilaterally. the patient has mild shortness of breath. Respiratory: Reports Airway is patent Respiratory effort is even, unlabored, Respiratory pattern is regular, symmetrical. GI: No signs and/or symptoms were reported involving the gastrointestinal system. Abdomen is round non-distended. : No signs and/or symptoms were reported regarding the genitourinary system. EENT: Reports nasal congestion. Musculoskeletal: Circulation, motion, and sensation intact. Range of motion: intact in all extremities. 01:30 Reassessment: Patient and/or family updated on plan of care and expected duration. Pain ha1 level reassessed. Patient is alert, oriented x 3, equal unlabored respirations, skin warm/dry/pink. 02:30 Reassessment: Patient and/or family updated on plan of care and expected duration. Pain ha1 level reassessed. Patient is alert, oriented x 3, equal unlabored respirations, skin warm/dry/pink. Patient states feeling better. Patient states symptoms have improved. 03:10 Reassessment: Patient and/or family updated on plan of care and expected duration. Pain ha1 level reassessed. Patient is alert, oriented x 3, equal unlabored respirations, skin warm/dry/pink. Patient states feeling better. Patient states symptoms have improved. Vital Signs: 00:22 Weight 89.36 kg; Height 6 ft. 1 in. ; vc1 00:29 BP 139 / 90; Pulse 70; Resp 18 S; Temp 97.6; Pulse Ox 95% on R/A; ha1 01:30 BP 131 / 90; Pulse 65; Resp 18 S; Pulse Ox 95% on R/A; ha1 02:30 BP 128 / 84; Pulse 67; Resp 18 S; Pulse Ox 96% on R/A; ha1 03:10 BP 134 / 88; Pulse 71; Resp 18 S; Pulse Ox 96% on R/A; ha1 00:22 Body Mass Index 25.99 (89.36 kg, 185.42 cm) vc1 [place] Coma Score: 20:27 Eye Response: spontaneous(4). Motor Response: obeys commands(6). Verbal Response: sp4 oriented(5). Total: 15. ED Course: 00:02 Patient arrived in ED. gm2 00:12 Patient has correct armband on for positive identification. Bed in low position. Call ha1 light in reach. Side rails up X 1. 00:12 Provided Education on: plan of care . Client placed on continuous cardiac and pulse ha1 oximetry monitoring. NIBP monitoring applied. 00:13 Dung Hendrix MD is Attending Physician. sp4 00:27 Triage completed. vc1 00:28 Arm band placed on right wrist. vc1 00:28 Inserted saline lock: 20 gauge in right forearm, using aseptic technique. Blood ha1 collected. Flushed with 10 mL NS. 00:29 COVID-19 Ag + Flu A+B Ag Sent. ha1 00:29 CBC with Diff Sent. ha1 00:29 CMP Sent. ha1 00:39 Chest Single View XRAY In Process Unspecified. EDMS 03:53 No provider procedures requiring assistance completed. IV discontinued, intact, ha1 bleeding controlled, No redness/swelling at site. Pressure dressing applied. Administered Medications: 02:25 Drug: Acetaminophen PO 1000 mg PO once Route: PO; ha1 03:10 Follow up: Response: No adverse reaction; Marked relief of symptoms; Pain is decreased ha1 02:25 Drug: Dextromethorphan-Guaifenesin PO Liquid 10 mg-100 mg/5 mL 10 ml PO once Route: PO; ha1 03:10 Follow up: Response: No adverse reaction; Marked relief of symptoms ha1 02:25 Drug: Tessalon Perle PO 200 mg PO once Route: PO; ha1 03:10 Follow up: Response: No adverse reaction; Marked relief of symptoms ha1 02:25 Drug: Ondansetron PO 4 mg PO once Route: PO; ha1 03:10 Follow up: Response: No adverse reaction; Marked relief of symptoms ha1 02:25 Drug: Rocephin (cefTRIAXone) IM 1 grams IM once Route: IM; Site: right deltoid; ha1 03:10 Follow up: Response: No adverse reaction ha1 02:26 Drug: Ibuprofen PO 800 mg PO once Route: PO; ha1 03:10 Follow up: Response: No adverse reaction; Marked relief of symptoms ha1 Medication: 00:35 VIS not applicable for this client. ha1 Outcome: 02:47 Discharge ordered by . angela 03:52 Discharged to home ambulatory, ha1 03:52 Condition: stable 03:52 Discharge instructions given to patient, Instructed on discharge instructions, follow up and referral plans. medication usage, Demonstrated understanding of instructions, follow-up care, medications, Prescriptions given X 4, 03:53 Patient left the ED. ha1 Signatures: Dispatcher [employer] EDMS Jazmine Daigle RN RN vc1 Morena Bland RN RN ha1 Dung Hendrix MD MD sp4 Gogo Rice [facility]
[2025-04-11 03:58] VITALS: TEMP 97.6
[2025-04-11 04:01] VITALS: O2SAT 96
[2025-04-11 04:03] VITALS: BP 134/88
== END 2025-04-11 03:53 | disposition home or self-care (01) ==
LOC: ER 23:58
DX: J02.9 Acute pharyngitis, unspecified (principal); R05.9 Cough, unspecified; Z11.52 Encounter for screening for COVID-19
CPT/HCPCS: 85025; 36415; 80053; 71045; 96372; 99284; 87428; Q0162; J0696; J2405